=== PATIENT | female | born 1995 | race Caucasian/White ===

== ENCOUNTER 2022-07-21 15:41 | Outpatient (CLI) | payer OTHER, SELFPAY | END 2022-07-21 15:42 | disposition home or self-care (01) | LOC: NFLDREF 15:42 | PROVIDERS: PCP Physical Medicine & Rehabilitation Pain Medicine; Visit Provider Advanced Practice Midwife | DX: Z34.93 Encounter for supervision of normal pregnancy, unspecified, third trimester (principal); Z3A.34 34 weeks gestation of pregnancy | CPT/HCPCS: 86900; 86901 ==

== ENCOUNTER 2022-08-02 16:00 | Outpatient (CLI) | payer OTHER, SELFPAY | END 2022-08-02 16:01 | disposition home or self-care (01) | PROVIDERS: PCP Physical Medicine & Rehabilitation Pain Medicine; Referring Provider Physical Medicine & Rehabilitation Pain Medicine; Visit Provider Advanced Practice Midwife | DX: Z34.83 Encounter for supervision of other normal pregnancy, third trimester (principal); Z3A.36 36 weeks gestation of pregnancy | CPT/HCPCS: 87081; 87653 ==

== ENCOUNTER 2022-08-20 16:12 | Outpatient (CLI) | payer OTHER, SELFPAY ==
[2022-08-20 16:17] VITALS: PULSE 82; O2SAT 99
[2022-08-20 16:37] VITALS: BP 109/68; PULSE 92; RESP 16; TEMP 37.2
--- NOTE | 2022-08-20 19:26 | PC.OBNST ---
NST Note NST Note Start: 08/20/22 16:19 Freq: ONCE Status: Active Protocol: Document 08/20/22 19:25 AAP (Rec: 08/20/22 19:26 AAP [id number]) NST Note 5 Para (# of births) 2 EDC 08/29/22 Gestational Age In Weeks & Days 38 Weeks & 5 Days Patient Presented with Complaint(s) of Decreased movement Reactive Yes Appropriate for Gestational Age Yes ALEXIA Marx, RNC Date 08/20/22 Reactive Yes Appropriate for Gestational Age Yes ALEXIA Tate, RN Date 08/20/22 OB NST charge Yes Complete NST Note via Write Note Yes The provider's electronic signature indicates the NST is reactive/appropriate for gestational age. *Note to provider: If an addendum is required, open the patient's chart and click on the note under the Nurse/Allied Health tab.
== END 2022-08-20 17:25 | disposition home or self-care (01) ==
LOC: OB OUT 16:12 → OB 16:13
PROVIDERS: PCP Physical Medicine & Rehabilitation Pain Medicine; Visit Provider Advanced Practice Midwife
DX: Z34.93 Encounter for supervision of normal pregnancy, unspecified, third trimester (principal); Z3A.39 39 weeks gestation of pregnancy
CPT/HCPCS: 59025; 99213

== ENCOUNTER 2022-08-30 01:33 | Inpatient (IN) | payer OTHER, SELFPAY ==
[2022-08-29 21:00] VITALS: BP 125/73; PULSE 93; RESP 16; TEMP 37
[2022-08-30] VITALS (113 sets, daily range): BP systolic 86–192; BP diastolic 47–86; PULSE 74–112; RESP 16; TEMP 36.3–38.1; O2SAT 95–100
[2022-08-30] MEDS: hydrOXYzine pamoate 25 MG CAPSULE 100 MG PO (00:36)
[2022-08-30] MEDS: MORPHINE 10 MG/ML inj IM (00:36)
[2022-08-30] MEDS: LACTATED RINGERS 1000 ML 1,000 ML 900 ML IV (01:43)
[2022-08-30] MEDS: fentaNYL 250 MCG/5 ML inj 100 MCG EPIDURAL (02:30)
[2022-08-30] MEDS: LIDOCAINE 2% (PF) 5 ML VIAL EPIDURAL (02:35)
[2022-08-30] MEDS: ROPIVACAINE 0.2% 100 ml 100 ML 12 MG EPIDURAL ×3 (02:35→16:39)
--- NOTE | 2022-08-30 02:47 | P.ANBPRC_ITS ---
PFSH PFS Medical History Autonomic dysfunction ?G90.9 - Disorder of the autonomic nervous system, unspecified (ICD-10) Vaginal delivery ?O80 - Encounter for full-term uncomplicated delivery (ICD-10) Family History Mother Heart disease Sister Leukemia Social History Narrative: SOCIAL?? Education: associate degrees times two.?? 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 Lives with: Sonido and two children (2 and 4)? Pets: dog and a cat Abuse: Denies past/present?? Special Diet: Denies?? Ok with a blood transfusion: yes?? Culture or buddhism beliefs: denies?? RISK FACTORS?? Exercise Times/wk: 2 times?? Depression/Anxiety: high school age no meds at that time. Did therapy, no problems since.??Hx of PP anxiety with first baby, no meds or therapy. Today feels her anxiety is manageable, declines referral for therapy and does not want to start any medications. JOE: 8 PHQ 9: 6?? Seat Belt Use: Routinely Smoking: Denies past/present?? Alcohol/day: Denies while ?? Caffeine: no?? Drug Use: Denies past/present?? Chicken Pox: vaccinated, records show non-immune?? MRSA: Denies?? Smoking Status: Never smoker Little interest or pleasure in doing things: several days Feeling down, depressed, or hopeless: not at all Meds Home Medications and Allergies Home Medications Medication Instructions Recorded Confirmed Type prenat.vits,selena,[id number] 1 tab PO QDAY 07/21/22 08/29/22 History iron, carbonyl 18 mg iron chewable 18 mg PO ONCE 08/02/22 08/29/22 History tablet ascorbate calcium (vitamin C) .ROUTE 08/29/22 History Allergies Allergy/AdvReac Type Severity Reaction Status Date / Time No Known Drug Allergies Allergy Verified 08/23/22 14:55 Results Vital Signs Vital Signs: Last Vital Signs Temp 98.6 F 08/29/22 21:00 Pulse 82 08/30/22 02:42 Resp 16 08/29/22 21:00 BP 126/75 08/30/22 02:42 Pulse Ox 100 08/30/22 02:35 Anesthesia Procedures Epidural Insertion Patient Location: OB Start Time: 02:00 Stop Time: 03:00 Start Date: 08/30/22 Stop Date: 08/30/22 Reason for Block: primary anesthetic Patient Position: sitting Performed By: Shaka Treadwell Preanesthetic Checklist: IV checked, risks and benefits discussed, surgical consent, monitors and equipment checked, pre-op evaluation, timeout performed and anesthesia consent Prep: chlorhexidine gluconate Monitoring: blood pressure monitoring, playground monitor, continuous pulse oximetry and heart rate Approach: midline Vertebral Space: lumbar (1-5) Needle Type: Tuohy needle Injection Technique: continuous catheter Needle gauge: 17 Needle Length (cm): 10 cm Needle Insertion Depth (cm): 6 Catheter Gauge: 19 Catheter Type: multi-orifice Catheter at skin depth (cm): 12 Test Dose Result: negative and lidocaine 1.5% with epinephrine 1 to 200,000 Events: other
--- NOTE | 2022-08-30 02:47 | W.PM.LDBA ---
Subjective History of Present Illness Date Seen: 08/30/22 Narrative: Patient is being admitted to Labor and Delivery for spontaneous onset of labor. She is a 26 year old at weeks gestation. She reports labor started yesterday afternoon. She presented to triage around 10 pm where she made minimal cervical change control coordinator 3 hours. She was recommended discharge home and offered morphine and vistaril. She was hesitant about discharge due to living over 45minutes from hospital. She agreed with therapeutic rest with observation at hospital x1 hour after administration. After medication, she was able to rest for a period, but then contractions intensified and significant cervical change was noted at the 1 hour recheck. She is requesting an epidural for pain management on admission. Her full history and physical was dictated by ERIN Deleon on 08/09/2022. Please see this for details. Sonido. Tx at 34 3/7 weeks OB PROBLEM LIST 1. Bleeding in early up to 16 weeks per pt (minimal records sent) requested again 07/21/22 2. Anxiety hx as teen - no medication, did do therapy hx PP anxiety with first, no meds or therapy feels anxiety is manageable at transfer visit. 3. Varicella non-immune 4. Anemia, hgb 10.2 Started iron supplement daily COVID: declines Flu: Fall 2021 TDAP: OB - Problem Based A/P Additional Plan (1) Spontaneous onset of labor: Status: Acute (2) Pain during labor: Status: Acute Plan ASSESSMENT:? 26 at 40 1/7 weeks gestation? complicated by:?Bleeding in early up to 16 weeks, Anxiety, Varicella non-immune, Anemia Labor type: Spontaneous, Active labor? Category 1 FHR pattern.?? Labor complicated by: none? GBS negative? ? PLAN:? 1. Routine intrapartum cares as ordered. Continue with expectant management? 2. Monitoring per policy, continuous with epidural? 3. Candidate for analgesia of choice if desired. Epidural was placed, patient comfortable. 4. Patient encouraged to reposition and ambulate to promote physiologic labor and .? 5. Anticipate ? Delivery/Labor/Induction Plan Plan: expectant management OB Result Labs Labs: OB Labs from [facility]:?Blood type and antibody screen [negative].? not sent in records drawn 07/21: A+? ?Hgb: no record drawn 07/21: 10.2 ?Platelets: drawn 07/21: 222 ?Rubella: Immune?RPR: non-reactive?HBsAg: negative?HIV: negative?GC/Chlamydia: negative/negative Hep C: neg Varicella: non-immune 1hr gtt: 93? 1st trimester US 01/21/2022. SIUP with CALVIN 08/29/2022, consistent with LMP. Anatomy US 04/11/2022?EFW 24%, no anomalies identified, posterior placenta OB Exam Physical Exam Vital signs: Temp Pulse Resp BP Pulse Ox 98.6 F 82 16 126/75 100 08/29/22 21:00 08/30/22 02:42 08/29/22 21:00 08/30/22 02:42 08/30/22 02:35 Narrative: Vitals Reviewed Constitutional:? Alert and oriented x3 HEENT:? Normocephalic, atraumatic Neck:? Supple Lungs:? Clear to auscultation bilaterally Heart:? Regular rate and rhythm, no murmur, rub or gallop Abdomen:? Soft, nontender, and gravid. Vertex by Albin's, confirmed with cervical exam. Extremities:? No edema or erythema Cervix: 6 cm/100%/-2 station/vertex, per RN NST: 125 bpm/moderate variability/15x15 accelerations/no decelerations/contractions every 2-4 minutes
[2022-08-30] MEDS: LACTATED RINGERS 1000 ML 1,000 ML 125 ML IV ×3 (03:02→16:32)
[2022-08-30] MEDS: PHENYLEPHRINE 100 MCG/ML SYRINGE IVP ×2 (03:40→03:52)
[2022-08-30] MEDS: ePHEDrine sulfate 5 MG/ML inj 10 MG IVP (04:12)
--- NOTE | 2022-08-30 08:27 | PM.OBPNL ---
Subjective Time Seen by Provider: 08:15 Date Seen: 08/30/22 Narrative: Margaux is currently resting, comfortable with her epidural. She does say she is feeling some intermittent pressure. Her partner is with her for support. She would like to continue with the epidural for comfort and pain management.?? Objective Exam: VSS, afebrile General Appearance:? Calm, cooperative. No acute distress. ? Psychiatric Exam: Alert and oriented, appropriate affect Abdomen: Gravid Ctx: ?Q 2-4 min apart. ?Mild - Moderate FHTs: Baseline: 135. Variability: moderate. Accels: present. Decels: none. SVE: /-3 Membranes: Intact ? Vital Signs: Last Vital Signs Temp 98.1 F 08/30/22 05:22 Pulse 93 08/30/22 08:19 Resp 16 08/30/22 05:22 BP 111/57 L 08/30/22 08:19 Pulse Ox 100 08/30/22 02:35 Plan Plan: Assessment:?? at 40.1 gestation?? GBS negative Patient is coping well with challenges of labor.?? Labor type: Spontaneous, Active labor? complicated by: -Anxiety -varicella non immune -Anemia Labor complicated by: -Slow progress ? Plan:?? Pt has made no cervical change since 2am. Has hx of slow labors. Baby likely asynclitic by SVE. Reviewed options of expectant management, AROM if safe to do so, and pitocin augmentation. She would prefer to proceed with AROM when able. RNs encouraged to try position changes to allow for better positioning. Will reevaluate after and see if able to AROM. Continue with routine intrapartum cares as ordered.?? Patient encouraged to move and change positions to promote physiologic labor and .?? Continue with epidural for pain management Anticipate progress to NVD.
[2022-08-30] MEDS: OXYTOCIN 30 unit/500 ML in NS 30 UNIT/500 ML BAG IVPB (15:18)
--- NOTE | 2022-08-30 15:21 | PM.OBPNL ---
Subjective Time Seen by Provider: 15:21 Date Seen: 08/30/22 Narrative: Margaux has continued to labor throughout the day. SVEs indicated a likely OP and asynclitic baby. Variables have occurred throughout the day also, improving with position changes. She has been in various position changes throughout the day, including side lying with peanut ball, flying cowgirl, side lying release, hands and knees on the nichole bag and with her chest on the bed. Baby now feels lower and the head is well applied to the cervix unlike prior checks where baby felt as though it was on the pubic bone. Her cervix remains unchanged at this time since 2 am. Reviewed the option of pitocin to make the contractions stronger and she agrees. Is aware the baby may not tolerate this. Consulted Dr. Leos, who reviewed the FHTs and agrees with the plan to start pitocin. Pt and her partner are also agreeable to this plan. Her partner remains at the bedside for support. She has an epidural for pain management. Overall it is working well, though she has felt pressure throughout the day. Objective Exam: VSS, afebrile General Appearance:? Calm, cooperative. No acute distress. ? Psychiatric Exam: Alert and oriented, appropriate affect Abdomen: Gravid Ctx: ?Q 2-4 min apart. ?Mild - Moderate FHTs: Baseline: 150. Variability: min - mod. Accels: present. Decels: none. SVE: 6/90/-1 Membranes: AROM X 4.5 hours, clear fluid ? Vital Signs: Last Vital Signs Temp 98.5 F 08/30/22 13:00 Pulse 93 08/30/22 15:04 Resp 16 08/30/22 05:22 BP 122/56 L 08/30/22 15:04 Pulse Ox 97 08/30/22 12:26 Plan Plan: Assessment:?? at 40.1 gestation?? GBS negative? Labor type: Spontaneous, Active labor? complicated by: -Anxiety -varicella non immune -Anemia Labor complicated by: -Little progress in cervical dilation -variable decels AROM, Clear fluid at 1054 ? Plan:?? Decision made to proceed with pitocin augmentation. Pt agreeable to plan and Dr. Leos aware. Will continue to monitor FHTs closely. Continue with routine intrapartum cares as ordered.?? Patient encouraged to move and change positions to promote physiologic labor and .?? Continue with epidural for pain management Anticipate progress to NVD.?
--- NOTE | 2022-08-30 17:37 | W.PM.OBVAGDE ---
OB Procedure Vag Delivery Mother Details Mother Details: The patient is a 26 year-old, 5, Para 2, admitted on 08/30/22 at 40.1 weeks gestation. : 5 Para: 3 Weeks Gestation: 40.1 Admission Date: 08/30/22 Additional Details Amniotic Membrane Status: AROM Amniotic Membrane Rupture Date: 08/30/22 Amniotic Membrane Rupture Time: 10:54 Amniotic Membrane Fluid Description: Clear Analgesia/Anesthesia Type: Epidural Waterbirth: No Pitcoin: Yes Intrapartal Events: None Delivery augmentation: rupture of membranes and pitocin Labor Onset: 01:56 Complete: 16:58 Pushin:59 Heart: heart tones during second stage were 150s, with variable decels noted during ctx/pushing. Good return to baseline. Delivery Details Delivery Date: 08/30/22 Delivery Time: 17:18 Route of delivery: Infant Gender: Male Infant Viability: Alive; Heart Rate Present Position at Delivery: OA Delivery Details: Margaux labored throughout the day in various position in attempt to help baby into a better position for labor (initially thought to be asynclitic and OP) and to improve variable decels noted throughout labor at times. Baby was able to rotate into a better position, and pitocin was started to increase intensity of ctx and spacing. She was noted to be complete, and a practice push demonstrated baby tolerated pushing and good progress/descent noted w/ pushing. At 1718 a viable?male delivered in vertex OA presentation over intact perineum via spontaneous vaginal?delivery. ?The head then rotated to the OP position. nuchal cord noted, but low and unable to grasp it. Gentle traction applied and pt instructed to push. Delivery of shoulder occurred, and nuchal cord slipped over 's head. Body dystocia noted, likely r/t hips being in a horizontal position, and infant grasped at the axilla and delivered. Infant was placed on maternal abdomen. ?Cord was clamped and cut after a 5+ minute delay.? Nose and mouth were bulb suctioned.? Infant weight pending. ? 9 at 1 minute and 9 at 5 minutes. ?Shoulder dystocia: no. ?Nuchal cord: yes, reduced after delivery of had and shoulders. Placenta delivered spontaneously and complete at 1728 with a 3 vessel cord. Mother and infant were stable after?delivery. Lacerations:? none Blood loss: 50 mL. Blood loss measurement type: QBL? Sponge and needles counts are correct. 1 Minute Interval Total Score: 9 5 Minute Interval Total Score: 9 Additional Details Shoulder Dystocia: No Placenta Delivery Time: 17:28 Placental Delivery Description: Spontaneous Procedure Done: Global Blood Loss: 50 Laceration: None Blood Loss Measurement Type: QBL Sponge/Need Count Correct: Yes Cord Vessel Description: 3 Vessels, Nuchal Cord and Reduced Event Summary Status: Mother and infant were stable after delivery. Disposition: floor
[2022-08-30] MEDS: IBUPROFEN 600 MG TABLET PO (20:17)
[2022-08-30] MEDS: CLINDAMYCIN 900 MG/50 ML-D5W IVPB (20:20)
[2022-08-30] MEDS: LACTATED RINGERS 1000 ML 1,000 ML 50 ML IV (20:21)
[2022-08-31 00:30] VITALS: BP 99/63; PULSE 76; RESP 16; TEMP 36.3; O2SAT 97
[2022-08-31] MEDS: ACETAMINOPHEN 500 MG TABLET 1000 MG PO ×3 (00:50→12:58)
[2022-08-31] MEDS: IBUPROFEN 600 MG TABLET PO ×3 (03:53→16:45)
[2022-08-31] MEDS: CLINDAMYCIN 900 MG/50 ML-D5W IVPB ×2 (03:54→12:02)
[2022-08-31 05:01] VITALS: BP 95/63; PULSE 85; RESP 16; TEMP 36.5; O2SAT 97
[2022-08-31 05:11] LABS: Basophils Percent Auto 0.1 % (0.0-3.0); Eosinophils Percent Auto 0.3 % (0.0-7.0); Hemoglobin* 9.5 gm/dL (12.0-16.0); Immature Granulocytes Pct Auto 0.4 %; Lymphocytes Percent Auto 11.6 % (20-44); Mean Corpuscular HGB Conc 33 gm/dL (32-36); Mean Corpuscular Hemoglobin 29 pg (26-34); Mean Corpuscular Volume 88 fL (80-100); Neutrophils Percent Auto 79.6 % (42.0-72.0); Platelet Count* 238 K/uL (140-440); RDW Coefficient of Variation % 13.1 % (11.5-15.5); Red Blood Count 3.28 m/uL (4.00-5.20); White Blood Count* 16.27 K/uL (4.50-11.00)
[2022-08-31 05:13] LABS: Slide Review Reflex No
[2022-08-31 07:39] VITALS: BP 105/59; PULSE 76; RESP 16; TEMP 36.4; O2SAT 97
--- NOTE | 2022-08-31 08:06 | PM.OBPNVD1 ---
OB - PN:Subj Subjective Date Seen: 08/31/22 Patient comments OB post-: no complaints, pain well controlled, tolerating diet and flatus present [place] status: and doing well [place] feeding status: exclusively OB - PN: Obj Exam Physical Exam: Vital signs: Temp Pulse Resp BP Pulse Ox O2 Del Method 97.5 F L 76 16 105/59 L 97 Room Air 08/31/22 07:39 08/31/22 07:39 08/31/22 07:39 08/31/22 07:39 08/31/22 07:39 08/31/22 07:39 Constitutional: Constitutional: no acute distress Routine Neck Exam: Neck: Present full ROM Detailed Neck Exam: Thyroids: Thyroid: Present normal Routine Respiratory Exam: Respiratory: Present CTA bilaterally Routine Cardiovascular Exam: Cardiovascular: Present RRR Routine Abdominal Exam: Fundus: Present firm Routine Exam: Patient deferred: external exam Routine Extremities Exam: Extremities: Present full ROM Routine Back/Spine/Pelvis Exam: Back/Spine: Present full ROM Routine Neurological Exam: Neurological: Present alert and oriented X3 Routine Psychiatric Exam: Psychiatric: Present normal affect OB - PN: Obj Data Labs Labs: Laboratory Results - last 24 hr 08/31/22 05:05 WBC 16.27 H RBC 3.28 L Hgb 9.5 L Hct 29.0 L MCV 88 MCH 29 MCHC 33 RDW Coeff of Zachary 13.1 Plt Count 238 Neut % (Auto) 79.6 H Lymph % (Auto) 11.6 L [place] % (Auto) 8.0 Eos % (Auto) 0.3 Baso % (Auto) 0.1 Neut # (Auto) 13.00 H Lymph # (Auto) 1.90 [place] # (Auto) 1.30 H Eos # (Auto) 0.00 Baso # (Auto) 0.00 OB - PN: A/P Vaginal Delivery Assessment and Plan (1) Spontaneous onset of labor: Status: Acute (2) Pain during labor: Status: Acute (3) care following vaginal delivery: Status: Acute (4) Lactating mother: Status: Acute Plan day: 1 Plan: routine care Comments: Continue with scheduled antibiotic administration.
[2022-08-31] MEDS: FERROUS SULFATE 325 MG TABLET PO (09:13)
[2022-08-31] MEDS: DOCUSATE SODIUM 100 MG CAPSULE PO (09:13)
[2022-08-31 16:47] VITALS: BP 113/71; PULSE 80; RESP 16; TEMP 36.8; O2SAT 98
[2022-09-01 01:30] VITALS: BP 102/70; PULSE 77; RESP 16; TEMP 36.6; O2SAT 96
[2022-09-01 08:11] VITALS: BP 124/76; PULSE 82; RESP 16; TEMP 36.7; O2SAT 98
[2022-09-01] MEDS: FERROUS SULFATE 325 MG TABLET PO (08:19)
[2022-09-01] MEDS: DOCUSATE SODIUM 100 MG CAPSULE PO (08:19)
--- NOTE | 2022-09-01 08:30 | PM.OBDSVD1 ---
DS: Providers Provider Date Seen: 09/01/22 Date of admission: 08/30/22 01:33 Primary care physician: Suad Patten MD Admitting Clinician: Danna Keating CNM Attending Physician on discharge: Danna Keating CNM DS: Diagnosis Discharge Diagnosis (1) care following vaginal delivery: Status: Acute (2) Lactating mother: Status: Acute (3) Chorioamnionitis, delivered, current hospitalization: Status: Acute Problem details: Afebrile >24hours (4) Normal vaginal delivery: Status: Acute Exam Narrative: Exam Narrative: GENERAL APPEARANCE:? normal affect, alert, no distress MOOD:? appropriate CHEST:? clear to auscultation HEART:? regular rate and rhythm ABDOMEN:? soft, non-tender the uterine fundus is 1 cm below Umbilicus, Midline and is appropriate for the stage of recovery. PERINEUM:? mild edema of the perineum, intact EXTREMITIES:? normal and no edema Const: Vital Signs, click to edit/add: Vital Signs - 24 hr 08/31/22 16:47 09/01/22 01:30 09/01/22 08:11 Temperature 98.3 F 97.8 F 98.0 F Pulse Rate [Pulse Oximeter] 80 77 82 Respiratory Rate 16 16 16 Blood Pressure [Le ft Arm] 113/71 102/70 124/76 Pulse Oximetry 98 96 98 Oxygen Delivery Me thod Room Air Room Air Room Air Documenting provider has reviewed patient's vital signs: yes OB - DS: Summary Hospital Course Hospital Course: Margaux is a 26 year old G 5 P 3023 at 40 1/7 weeks gestation that was admitted to the Center on 08/30/22 for spontaneous onset of labor. She had an uncomplicated vaginal delivery. She delivered a viable male infant. Her was complicated by elevated temperature a few hours after . She was treated with antibiotics and has been afebrile >24 hours. The patient feels well. ?The pain is well controlled with current medications. ?She has no new complaints. ?She is [breast feeding] and reports things are [] going well.? the patient has done well.? Vitals have been stable.? She has remained afebrile.? Has a good appetite, is tolerating a general diet. ?She is voiding without difficulty.? She is passing gas and has [not] had a bowel movement.? She is ambulating and denies any dizziness.? Has [Small] amount of rubra lochia. ?She is planning [] for prevention. Peripartum Data Infant delivery method: Vaginal Laceration description: None complications: none [place] Gender: Male Infant Discharge Plan: Home Status at Discharge Functional status at discharge: independent ambulation Overall status at discharge: patient is progressing back to baseline Time Spent with Patient Time attestation: Total time spent providing and/or coordinating discharge services: Discharge Plan Discharge Disposition: Home, Self-Care Date of Admission: 08/30/22 01:33 Primary Care Provider: Suad Patten Condition: Stable Anticipated Discharge Date/Time: 09/01/22 12:00 Discharge Medications: New docusate sodium 100 mg Capsule 100 mg PO DAILY Qty: 90 0RF ibuprofen 600 mg Tablet 600 mg PO Q6H PRNQty: 60 0RF acetaminophen 500 mg Tablet 1,000 mg PO Q6H PRNQty: 0 0RF Continued prenat.vits,selena,[id number] Tablet 1 tab PO QDAY iron, carbonyl 18 mg iron tablet,chewable 18 mg PO ONCE ascorbate calcium (vitamin C) .ROUTE Discharge Orders: Discharge Order (Routine); Ordered 09/01/22 Ordered By: Danna Keating Patient Education: OB Over the Counter Medication Information, OB Vaginal/Breast Feeding Activity Level: No Restrictions Discharge Diet: Regular Follow Up Appointments: Suad Patten MD [Primary Care Provider] - [facility] [Provider Group] Forms: [employer] Info Instructions
== END 2022-09-01 15:10 | disposition home or self-care (01) | DRG 805 ==
LOC: OB OUT 01:34 → OB 01:34
PROVIDERS: Advanced Practice Midwife; Admitting Provider Advanced Practice Midwife; PCP Physical Medicine & Rehabilitation Pain Medicine; Visit Provider Advanced Practice Midwife
DX: O64.0XX0 Obstructed labor due to incomplete rotation of fetal head, not applicable or unspecified (principal); O41.1230 Chorioamnionitis, third trimester, not applicable or unspecified; Z37.0 Single live birth; O76 Abnormality in fetal heart rate and rhythm complicating labor and delivery; O99.344 Other mental disorders complicating childbirth; F41.9 Anxiety disorder, unspecified; O99.02 Anemia complicating childbirth; D64.9 Anemia, unspecified; Z28.39 Other underimmunization status; Z3A.40 40 weeks gestation of pregnancy
CPT/HCPCS: 01967; 36415; 85025; 87040; 99213; A9270; J1580; J2270; J2370; J2795; J3010; J7120; S0077

== ENCOUNTER 2023-08-18 12:57 | Outpatient (CLI) | payer OTHER, SELFPAY | END 2023-08-18 12:58 | disposition home or self-care (01) | LOC: NFLDREF 09-07 14:06 | PROVIDERS: PCP Physical Medicine & Rehabilitation Pain Medicine; Referring Provider Physical Medicine & Rehabilitation Pain Medicine; Visit Provider Advanced Practice Midwife | DX: Z34.91 Encounter for supervision of normal pregnancy, unspecified, first trimester (principal); O21.1 Hyperemesis gravidarum with metabolic disturbance; Z3A.01 Less than 8 weeks gestation of pregnancy | CPT/HCPCS: 76817; 86592; 86703; 86704; 86706; 86762; 86787; 86803; 86850; 86900; 86901; 87086; 87186; 87340 ==

== ENCOUNTER 2023-09-21 09:06 | Outpatient (CLI) | payer OTHER, SELFPAY | END 2023-09-21 09:07 | disposition home or self-care (01) | LOC: NFLDREF 09:07 | PROVIDERS: PCP Physical Medicine & Rehabilitation Pain Medicine; Visit Provider Advanced Practice Midwife | DX: Z34.91 Encounter for supervision of normal pregnancy, unspecified, first trimester (principal); Z3A.12 12 weeks gestation of pregnancy | CPT/HCPCS: 87086; 87186 ==

== ENCOUNTER 2023-10-19 09:13 | Outpatient (CLI) | payer OTHER, SELFPAY | END 2023-10-19 09:14 | disposition home or self-care (01) | LOC: NFLDREF 09:14 | PROVIDERS: PCP Physical Medicine & Rehabilitation Pain Medicine; Visit Provider Advanced Practice Midwife | DX: Z34.92 Encounter for supervision of normal pregnancy, unspecified, second trimester (principal); Z3A.16 16 weeks gestation of pregnancy | CPT/HCPCS: 87086 ==

== ENCOUNTER 2023-11-16 09:14 | Outpatient (CLI) | payer OTHER, SELFPAY ==
--- NOTE | 2023-11-16 09:15 | CRLHL7_ITS ---
For Patients: As a result of the Century Cures Act, medical imaging exams and procedure reports are released immediately into your electronic medical record. You may view this report before your referring provider. If you have questions, please contact your health care provider. INDICATION: Evaluate anatomy. COMPARISON: 08/18/2023 TECHNIQUE: Real time sheehan scale imaging of the fetus was performed as well as color Doppler analysis of the umbilical vessels. FINDINGS: Sonographic imaging demonstrates a single living intrauterine gestation. Fetus demonstrates a regular cardiac rate of 138 beats per minute. Fetus has a breech position. The placenta lies anteriorly without evidence of placenta previa. Placental edge 7.9 cm from the internal cervical os. Amniotic fluid volume appears normal. Single deepest vertical pocket: 4.3 cm. The cervix is closed and measures 4.2 cm in length. The composite ultrasound gestational age is calculated at 20 weeks 5 days with an estimated sonographic due date of 03/30/2024. The estimated weight is 394 grams which lies at the 84th %. The following biometric measurements were obtained: Biparietal diameter: 4.8 cm/20 weeks 3 days 53rd% Head circumference: 18.0 cm/20 weeks 3 day 48th% Abdominal circumference: 15.8 cm/20 weeks 6 days 65th% Femur length: 3.6 cm/21 weeks 3 days 80th% The HC/AC ratio measures: 1.14 range (1.06-1.25) On anatomic survey, there is a normal appearance of the cerebral ventricles, cavum septi pellucidi, cisterna magna and cerebellum. The nose, lips, and facial profile appear normal. The cervical, thoracic and lumbar spine are well visualized and appear normal. There is a normal four-chamber heart view and the left and right ventricular outflow tracts appear normal. The diaphragm and stomach appear normal. The kidneys and bladder also appear normal. There is a normal three-vessel cord and cord insertion site. The four extremities appear normal. IMPRESSION: Normal OB ultrasound exam with concordance of clinical and sonographic dating. No intrinsic abnormalities noted on anatomic survey. Dictated by Thomas Cast MD @ 11/17/2023 11:58:03 AM (Electronically Signed)
== END 2023-11-16 09:15 | disposition home or self-care (01) ==
LOC: US 09:15
PROVIDERS: PCP Physical Medicine & Rehabilitation Pain Medicine; Visit Provider Advanced Practice Midwife
DX: Z34.92 Encounter for supervision of normal pregnancy, unspecified, second trimester (principal); Z3A.20 20 weeks gestation of pregnancy
CPT/HCPCS: 76805

== ENCOUNTER 2024-01-09 13:00 | Outpatient (CLI) | payer OTHER, SELFPAY | END 2024-01-09 13:01 | disposition home or self-care (01) | LOC: NFLDREF 01-12 08:28 | PROVIDERS: PCP Physical Medicine & Rehabilitation Pain Medicine; Referring Provider Physical Medicine & Rehabilitation Pain Medicine; Visit Provider Midwife | DX: Z34.93 Encounter for supervision of normal pregnancy, unspecified, third trimester (principal); Z3A.28 28 weeks gestation of pregnancy | CPT/HCPCS: 86592 ==

== ENCOUNTER 2024-02-28 12:19 | Outpatient (CLI) | payer OTHER, SELFPAY ==
[2024-02-28 12:27] VITALS: PULSE 92; O2SAT 98
[2024-02-28 12:41] VITALS: BP 111/60; PULSE 89
--- NOTE | 2024-02-28 13:54 | PC.OBNST ---
NST Note NST Note Start: 02/28/24 12:31 Freq: ONCE Status: Active Protocol: Document 02/28/24 13:52 ANDRY (Rec: 02/28/24 13:54 ANDRY [id number]) NST Note 6 Para (# of births) 3 EDC 04/02/24 Gestational Age In Weeks & Days 35 Weeks & 1 Days Patient Presented with Complaint(s) of Decreased movement Reactive Yes Appropriate for Gestational Age Yes ALEXIA Waters Date 02/28/24 Reactive Yes Appropriate for Gestational Age Yes ALEXIA Elkins Date 02/28/24 OB NST charge Yes Complete NST Note via Write Note Yes The provider's electronic signature indicates the NST is reactive/appropriate for gestational age. *Note to provider: If an addendum is required, open the patient's chart and click on the note under the Nurse/Allied Health tab.
== END 2024-02-28 13:13 | disposition home or self-care (01) ==
LOC: OB OUT 12:20 → OB 12:21
PROVIDERS: PCP Physical Medicine & Rehabilitation Pain Medicine; Visit Provider Advanced Practice Midwife
DX: O36.8130 Decreased fetal movements, third trimester, not applicable or unspecified (principal); Z3A.35 35 weeks gestation of pregnancy
CPT/HCPCS: 59025; G0463

== ENCOUNTER 2024-03-04 09:30 | Outpatient (CLI) | payer OTHER, SELFPAY | END 2024-03-04 09:31 | disposition home or self-care (01) | LOC: NFLDREF 03-06 10:10 | PROVIDERS: PCP Physical Medicine & Rehabilitation Pain Medicine; Referring Provider Physical Medicine & Rehabilitation Pain Medicine; Visit Provider Midwife | DX: Z34.93 Encounter for supervision of normal pregnancy, unspecified, third trimester (principal); O99.013 Anemia complicating pregnancy, third trimester; Z3A.35 35 weeks gestation of pregnancy | CPT/HCPCS: 82728; 87081; 87653 ==

== ENCOUNTER 2024-03-08 08:20 | Outpatient (CLI) | payer OTHER, SELFPAY ==
[2024-03-08 08:34] VITALS: PULSE 87; O2SAT 100
[2024-03-08 08:39] VITALS: PULSE 86; O2SAT 99
[2024-03-08 08:42] VITALS: BP 103/59; PULSE 75; RESP 18; TEMP 36.6
[2024-03-08 09:00] LABS: Appearance Urine Clear (Clear); Bilirubin Urine Negative (Negative); Blood Urine Negative (Negative); Color Urine Yellow (Yellow); Glucose Urine Negative (Negative); Ketones Urine Negative (Negative); Leukocyte Esterase Urine Negative (Negative); Nitrite Urine Negative (Negative); Protein Urine Negative (Negative)
--- NOTE | 2024-03-08 10:35 | PC.OBNST ---
NST Note NST Note Start: 03/08/24 08:22 Freq: ONCE Status: Active Protocol: Document 03/08/24 10:31 ANDRY (Rec: 03/08/24 10:34 ANDRY Desktop) NST Note 6 Para (# of births) 3 EDC 04/02/24 Gestational Age In Weeks & Days 36 Weeks & 3 Days Patient Presented with Complaint(s) of Contractions/cramping Other Complaints Pt. presented to center for c/o cramping, low back pain, and some mild nausea Reactive Yes Appropriate for Gestational Age Yes ALEXIA Waters Date 03/08/24 Reactive Yes Appropriate for Gestational Age Yes ALEXIA Elkins Date 03/08/24 OB NST charge Yes Complete NST Note via Write Note Yes The provider's electronic signature indicates the NST is reactive/appropriate for gestational age. *Note to provider: If an addendum is required, open the patient's chart and click on the note under the Nurse/Allied Health tab.
== END 2024-03-08 10:00 | disposition home or self-care (01) ==
LOC: OB OUT 08:21 → OB 08:24
PROVIDERS: PCP Physical Medicine & Rehabilitation Pain Medicine; Visit Provider Advanced Practice Midwife
DX: O47.03 False labor before 37 completed weeks of gestation, third trimester (principal); Z3A.36 36 weeks gestation of pregnancy
CPT/HCPCS: 59025; 81003; G0463

== ENCOUNTER 2024-03-09 22:54 | Outpatient (CLI) | payer OTHER, SELFPAY ==
[2024-03-09 23:19] VITALS: PULSE 73; O2SAT 96
[2024-03-09 23:20] VITALS: BP 101/59; PULSE 73; RESP 16; TEMP 36.6
[2024-03-09 23:56] LABS: Basophils Absolute Auto 0.03 K/uL (0.00-0.30); Basophils Percent Auto 0.3 % (0.0-3.0); Eosinophils Absolute Auto 0.03 K/uL (0.00-0.50); Eosinophils Percent Auto 0.3 % (0.0-7.0); Hematocrit 30.2 % (33.0-51.0); Immature Granulocytes Abs Auto 0.07 K/uL (0.00-0.30); Immature Granulocytes Pct Auto 0.8 %; Lymphocytes Percent Auto 15.6 % (20-44); Mean Corpuscular HGB Conc 33 gm/dL (32-36); Mean Corpuscular Hemoglobin 29 pg (26-34); Mean Corpuscular Volume 88 fL (80-100); Monocytes Percent Auto 8.1 % (0.0-11.0); Neutrophils Percent Auto 74.9 % (42.0-72.0); Platelet Count* 208 K/uL (140-440); RDW Coefficient of Variation % 13.1 % (11.5-15.5); Red Blood Count 3.43 m/uL (4.00-5.20); White Blood Count* 8.65 K/uL (4.50-11.00)
[2024-03-09 23:57] LABS: Slide Review Reflex No
[2024-03-10 00:10] LABS: Albumin* 3.5 g/dL (3.3-5.0); Chloride* 105 mmol/L (96-114); Sodium* 133 mmol/L (135-149)
[2024-03-10 00:11] LABS: Potassium* 3.2 mmol/L (3.6-5.1)
[2024-03-10 00:13] LABS: Alkaline Phosphatase* 148 U/L (40-150); Anion Gap 9 mEq/L (7-15); Aspartate Amino Transferase* 18 U/L (12-35); Bilirubin Total* 0.5 mg/dL (0.1-1.5); Blood Urea Nitrogen* 5 mg/dL (5-24); Carbon Dioxide* 19 mmol/L (20-32); Creatinine* 0.4 mg/dL (0.5-1.5); Estimated Glomerular Filt Rate 139 ml/min; Total Protein* 6.2 g/dL (6.0-8.3)
[2024-03-10 00:14] LABS: Alanine Aminotransferase* 12 U/L (4-35); Calcium* 8.4 mg/dL (8.4-10.6); Glucose* 88 mg/dL (60-115)
[2024-03-10 01:11] VITALS: TEMP 37.2
[2024-03-10] MEDS: hydrOXYzine pamoate 25 MG CAPSULE 50 MG PO (01:11)
[2024-03-10] MEDS: ACETAMINOPHEN 500 MG TABLET 1000 MG PO (01:11)
--- NOTE | 2024-03-10 01:45 | PC.OBNST ---
NST Note NST Note Start: 03/09/24 23:08 Freq: ONCE Status: Active Protocol: Document 03/10/24 01:40 RADHA (Rec: 03/10/24 01:42 KARUNAELADIA [id number]) NST Note 6 Para (# of births) 3 EDC 04/02/24 Gestational Age In Weeks & Days 36 Weeks & 5 Days Patient Presented with Complaint(s) of Other Other Complaints Ongoing abdominal pain since Reactive Yes RN Ilene Nguyen RN Date 03/10/24 Reactive Yes ALEXIA Devine RN Date 03/10/24 OB NST charge Yes Complete NST Note via Write Note Yes The provider's electronic signature indicates the NST is reactive/appropriate for gestational age. *Note to provider: If an addendum is required, open the patient's chart and click on the note under the Nurse/Allied Health tab.
== END 2024-03-10 01:20 | disposition home or self-care (01) ==
LOC: OB OUT 22:55 → OB 22:55
PROVIDERS: PCP Physical Medicine & Rehabilitation Pain Medicine; Visit Provider Midwife
DX: O26.893 Other specified pregnancy related conditions, third trimester (principal); R10.9 Unspecified abdominal pain; Z3A.36 36 weeks gestation of pregnancy
CPT/HCPCS: 36415; 59025; 80053; 85025; G0463; A9270

== ENCOUNTER 2024-03-10 01:23 | Emergency (ER) | payer OTHER, SELFPAY ==
[2024-03-10 01:30] VITALS: BP 117/77; PULSE 94; RESP 16; TEMP 36.8; O2SAT 95; BMI 29.6
[2024-03-10 02:02] LABS: Lipase* 45 U/L (23-300)
[2024-03-10] MEDS: GI COCKTAIL (VISC LIDO/ANTACID) 30 ML PO (02:05)
--- OUTSIDE RECORDS SUMMARY | 2024-03-10 02:20 | XMS_ITS | Clinical Summary ---
Author Organization [facility] Address [address] [place] [address] Care Team Providers Care Manufacturing Supervisor Name Role Phone Elsewhere, Pcp Primary Care Provider Unavailabl e Source Comments Patient records contain information from all sites at [facility]. For routine questions regarding patient records, call [phone] during business hours, M-F 8:00 AM - 5:00 PM Central Time. Record requests for emergency care only can be directed to [phone] at any time.[facility] Allergies No known active allergies Medications * This document contains information received from the source organization and may not represent a complete record from that organization. jxwcakt-Ir-xqpg -FA (VINATE ONE) 60 mg iron-1 mg per tablet Take 1 tablet by mouth daily. Active cephalexin (KEFLEX) 500 mg capsule Take 1 capsule by mouth 4 (four) times a day with meals and bedtime. 08/20/2023 Active metoclopramide (REGLAN) 10 mg tablet Take 1 tablet by mouth 4 (four) times a day with meals and bedtime. 08/18/2023 Active Active Problems Problem Noted Date Diagnosed Date 30 Weeks Gestation 06/24/2022 Encounter For Supervision Of Normal Unspecified Trimester 06/09/2022 Pap Smear Examination 05/13/2022 Overview (05/13/2022): Due , patient declined in Examination Normal First Trim sadie 01/21/2022 Overview (01/21/2022): Varicella and Rubella Immune Pap smear due, deferred until next visit with GC/CT. Anxiety 10/23/2019 Seizure 07/01/2013 Overview (09/13/2016): Convulsions/spells/seizures* Comments Yes Resolved Problems Problem Noted Date Diagnosed Date Resolved Date 39 Weeks Gestation 04/27/2020 01/21/2022 COVID-19 Infection 12/30/2019 0 Examination Normal Second Trimester 09/18/2019 06/16/2020 Care 06/13/2018 09/18/2019 Delivery Vaginal Normal Spontaneous 06/13/2018 09/18/2019 Delivery Vaginal Normal Spontaneous 06/11/2018 06/13/2018 Examination Normal Third Trimester 06/09/2018 06/13/2018 Anomaly Suspected Not Found 02/16/2018 09/18/2019 Encounter For Supervision Of Normal First Unspecified Trimester 12/18/2017 06/13/19 19 Immunizations Name Administration Dates Next Due 4vHPV (discontinued) 05/29/2009,01/26/2009,11/10 DTaP (Infanrix, [employer]) 11/10/2008,11/2001,03/30/1998,1996,01/28/1997,1996 HepB, Unspecified 06/27/1997,1996,09/27/18 97 Hib (PRP-OMP) (PedvaxHIB) 10/10/1997,12/1996,01/28/1997,1996 IPV 10/29/2001 MMR 06/12/2018,10/29/2001,10/10/1997 OPV 04/01/1997,01/28/1997,1996 Rabies, intramuscular, historical 2013,11/04/2013,10/31/2013,2013 Tdap 06/09/2022, 0,04/09/2018,2013 JAIRON 03/10/2009,10/10/1997 influenza trivalent LAIV (Na moni) (2 years through 49 years) 03/01/2010 influenza vaccine quad (FLUZONE/FLUARIX) (6 months and older)(PF) 03/22/2022,02/16/2021,02/12/2020,2018,02/12/2018 Family History Medical History Relation Name Comments Alcohol abuse Father Greyson Lauren Hyperlipidemia Father Greyson Lauren Hypertension Father Greyson Lauren Clotting disorder Mother Natalia Lauren Coronary artery disease Mother Natalia Lauren Heart attack Mother Natalia Lauren Heart disease Mother Natalia Lauren Hyperlipidemia Mother Natalia Lauren Hypertension Mother Natalia Lauren Miscarriages / Stillbirths Mother Natalia Lauren Cancer Sister Leukemia Sister Miscarriages / Stillbirths Sister Melanoma Neg Hx Relation Name Status Comments Brother Alive Father Greyson Lauren Alive Maternal Grandfather Alive Maternal Grandmother Alive Mother Natalia Lauren Alive Paternal Grandfather Paternal Grandmother Alive Sister Alive Social History Tobacco Use Types Packs/Day Years Used Date Smoking Tobacco: Never Smokeless Tobacco: Never Tobacco Cessation:Counseling Given: Not Answered Alcohol Use Standard Drinks/Week Comments Yes 5 (1 standard drink = 0.6 oz pur e alcohol) socially Humiliation, Afraid, Rape, and Kick questionnair e Answer Date Recorded Within the last year, have y ou been afraid of your partner or ex-partner? No 07/14/2022 Within the last year, have y ou been humiliated or emotionally abused in other ways by your partner or ex-partner? No Within the last year, have y ou been kicked, hit, slapped, or otherwise physically hurt by your partner or ex-partner? No 07/14/2022 Within the last year, have y ou been raped or forced to have any kind of sexual activity by your partner or ex-partner? No 07/14/2022 Social Connection and Isolat ion Panel [NHANES] Answer Date Recorded In a typical week, how many times do you talk on the phone with family, friends, or neighbors? More than three times a week 07/14/2022 Frequency of Social Gatherin gs with Friends and Family Not on file 07/14/2022 How often do you attend [facility] or [facility] services? More than 4 times per year 07/14/2022 Do you belong to any clubs o r organizations such as jain groups, unions, fraternal or athletic groups, or school groups? Yes 07/14/2022 How often do you attend meet ings of the clubs or organizations you belong to? 1 to 4 times per year 07/14/2022 Are you , , di vorced, , never , or living with a partner? 07/14/2022 AUDIT-C Answer Date Recorded Q1: How often do you have a drink containing alc ohol? Never 07/14/2022 Average Number of Drinks Not on file 023 Frequency of Binge Drinking Not on file 06/23 Overall Financial Resource Strain (CARDIA) Answe r Date Recorded How hard is it for you to pa y for the very basics like food, housing, medical care, and heating? Somewhat hard 07/14/2022 PHQ-2 Answer Date Recorded PHQ-2 Score 3 11/24/2020 [facility] of Occupat ional [facility] - Occupational Stress Questionnaire Answer Date Recorded Do you feel stress - tense, restless, nervous, or anxious, or unable to sleep at night because your mind is troubled all the time - these days? Only a little 07/14/2022 Exercise Vital Sign Answer Date Recorde d On average, how many days pe r week do you engage in moderate to strenuous exercise (like a brisk walk)? 2 days 07/14/2022 On average, how many minutes do you engage in exercise at this level? 20 min 07/14/2022 Hunger Vital Sign Answer Date Recorded Within the past 12 months, y ou worried that your food would run out before you got the money to buy more. Sometimes true Within the past 12 months, t he food you bought just didn't last and you didn't have money to get more. Never true PRAPARE - Transportation Answer Date Re corded In the past 12 months, has l ack of transportation kept you from medical appointments or from getting medications? No 06/23 In the past 12 months, has l ack of transportation kept you from meetings, work, or from getting things needed for daily living? No 07/14/2022 Housing Stability Vital Sign Answer Guy e Recorded In the last 12 months, was t here a time when you were not able to pay the mortgage or rent on time? No 07/14/2022 In the last 12 months, how many places have you lived? 1 07/14/2022 In the last 12 months, was t here a time when you did not have a steady place to sleep or slept in a fci (including now)? No 07/14/2022 Depression Answer Date Recor ded PHQ-9 Total Score (max 27) 10 11/24 Nutrition Answer Date Recorded On average, how many serving s of fruits and vegetables do you eat per day (serving size is equal to 1 cup or approximately the size of a tennis ball)? 2-3 07/14/2022 Dental Answer Date Recorded Dental: Regular Dentist No 07/15/19 Education Answer Date Recorded What is the highest level of school you have completed or the highest degree you have received? Associate degree: academic program 09/18/2019 Comments Yes Sex and Gender Information Value Date Recorded Sex Assigned at Female 06/10/2018 1:03 AM STRAP STITCHER Legal Sex Female 6:12 PM STRAP STITCHER Gender Identity Female 06/10/2018 1:03 AM STRAP STITCHER Sexual Orientation Straight 06/10/2018 1: 03 AM STRAP STITCHER Occupation Industry Job Start Date Job End Date Not on file Not on file Not on file Not on file Last Filed Vital Signs Vital Sign Reading Time Taken Comments Blood Pressure 106/74 08/28/2023 3:51 PM CDT Pulse 96 08/28/2023 3:51 PM CDT Temperature 36.4 ??C (97.5 ??F) 08/28/2023 3:51 PM CD T Respiratory Rate 16 09/20/2022 6:47 PM CDT Oxygen Saturation 96% 03/24/2022 7:14 PM STRAP STITCHER Inhaled Oxygen Concentration - - Weight 71.7 kg (158 lb 1.1 oz) 08/28/2023 3:51 P M CDT Height 175 cm (5' 8.9) 05/13/2022 9:42 AM STRAP STITCHER Body Mass Index 23.41 05/13/2022 9:42 AM STRAP STITCHER Plan of Treatment Health Maintenance Due Date Last Done Comments Cervical/Vaginal Cancer Screening 07/25/2021 07/25/2018 Depression Screening (Annual PHQ-2) 04/24/2023 COVID-19 Vaccine ( season) 2023 Influenza Vaccine (#1) 2024 , 02/16/2021, 02/12/2020, Additional history exists DTaP,Tdap,and Td Vaccines (11 - Td or Tdap) 06/09/2032 06/09/2022, 02/12/2020, 04/09/2018, Additional history exists RSV vaccine - (32-36 weeks) or 60+ years (1 - 1-dose 75+ series) 09/27/2071 Hepatitis B Vaccines Completed 06/27/1997, 1996, 1996 IPV Vaccines Completed 10/29/2001, 12/1996, 01/28/1997, Additional history exists HPV Vaccines Completed 05/29/2009, 08/2008, 11/10/2008 Chlamydia and Gonorrhea Screening Discontinued 02/18/2022, 09/18/2019 HIV Screening Completed 05/13/2022, 08/23, 11/22/2017 Hepatitis C Screening Completed 05/13/2022 Pneumococcal vaccine (0-64 years) Aged Out No longer eligible based on patient's age to complete this topic Procedures Procedure Name Priority Date/Time Associated Diagnosis Comments HCV AB SCRN , S Routine 05/13/2022 9:37 AM STRAP STITCHER Examination Normal First Trimester (HCC) HIV-1/-2 AG AND AB SCREEN, PLASMA Routine 05/13/2022 9:37 AM STRAP STITCHER Examination Normal First Trimester (HCC) CHLAMYDIA/GONORRHOE AE AMPLIFIED RNA Routine 02/18/2022 12:06 PM CDT 12 Weeks Gestation (HCC) THINPREP SCREEN HPV REFLEX Routine 07/25/2018 12:09 PM CDT Exam (HCC) from Last 3 Months or Most Recently Relevant to Health Maintenance Results * Hepatitis C Virus Antibody Screen (05/13/2022 9:37 AM STRAP STITCHER) HCV Ab Scrn , S Negative Negative 05/14/2022 1:59 PM STRAP STITCHER [facility] Comment:Grxjdr-lk-rqsrtq rat io is <1.00. Blood (Blood, Venous) 05/13/2022 9:37 AM STRAP STITCHER 05/14/2022 9:01 AM STRAP STITCHER Diana Epps CNM, A.P.N.P. LAB MICROBIOLO GY - BLOOD ORDERABLES Final Result [facility] [address] [place] [address] [facility] [address] [place] [address] * HIV-1/-2 Ag and Ab Screen, Plasma (05/13/2022 9:37 AM STRAP STITCHER) [facility] HIV Ag/Ab Screen, P Negative Negative 05/13/2022 6:19 PM STRAP STITCHER [facility] Comment: Negative result does not rule out HIV infection. If exposure to HIV infection occurred <14 days ago, contact the laboratory to request addition of HIV-1 RNA detection / quantification test. HIV-1 p24 Ag Screen, P Negative Negative 05/13/2022 6:19 PM STRAP STITCHER [facility] Comment: Negative result does not rule out HIV infection. If exposure to HIV infection occurred <14 days ago, contact the laboratory to request addition of HIV-1 RNA detection / quantification test. HIV-1 Ab Screen, P Negative Negative 2022 6:19 PM STRAP STITCHER [facility] Comment: Negative result does not rule out HIV infection. If exposure to HIV infection occurred <14 days ago, contact the laboratory to request addition of HIV-1 RNA detection / quantification test. HIV-2 Ab Screen, P Negative Negative 2022 6:19 PM STRAP STITCHER [facility] Comment: Negative result does not rule out HIV infection. If exposure to HIV infection occurred <14 days ago, contact the laboratory to request addition of HIV-1 RNA detection / quantification test. Blood (Blood, Venous) 05/13/2022 9:37 AM STRAP STITCHER 05/13/2022 2:58 PM STRAP STITCHER Diana Epps CNM, A.P.N.P. LAB MICROBIOLO GY - BLOOD ORDERABLES Final Result Performing Organization Address City/[facility]/ZIP Co de Phone Number [facility] [address] [place] [address], [facility] [place] [address] [place] [address] * Chlamydia / Gonorrhoeae Amplified RNA (02/18/2022 12:06 PM CDT) Source Urine, Urine, First Voided 02/21/2022 3:05 PM CDT [facility] Chlamydia trachomatis amplified RNA Negative Negative 02/21/2022 3:05 PM CDT [facility] Source Urine, Urine, First Voided 02/21/2022 3:05 PM CDT [facility] Neisseria gonorrhoeae amplified RNA Negative Negative 02/21/2022 3:05 PM CDT [facility] Urine (Urine, First Voided) 02/18/2022 12:06 PM CDT 02/19/2022 12:13 AM CDT Carol Patten M.D. LAB MICROBIOLOGY - GENERAL ORDERABLES Final Result Performing Organization Address City/[facility]/ZIP Co de Phone Number [facility] [address] [place] [address], [facility] [place] [address] [place] [address] * ThinPrep Screen HPV Reflex (07/25/2018 12:09 PM CDT) 07/27/2018 1:44 PM CDT [facility] Report electronically signed by KELLY Escalante(ASCP) I verify that I have examined all relevant slides/materials for the specimen(s) and rendered or confirmed the diagnosis. 07/27/2018 1:44 PM CDT [facility] Gross Description Received specimen in a ThinPrep vial. 07/27/2018 1:44 PM CDT [facility] Pap Test Source Cervical/Endocervi selena 07/27/2018 1:44 PM CDT [facility] Interpretation Cervical/Endocervi selena ??(ThinPrep): Satisfactory for Evaluation Endocervical/trans formation zone components absent Negative for Intraepithelial Lesion or Malignancy Shift in segundo suggestive of bacterial vaginosis 07/27/2018 1:44 PM CDT [facility] Varies (Cervix/Endocerv ix) 07/25/2018 12:09 PM CDT 07/26/2018 9:17 AM CDT us Natalia Santos CN LAB PAP PATHDX ORDERABLES Final Result [facility] [address] [place] [address], [facility] from Last 3 Months or Most Recently Relevant to Health Maintenance Insurance [facility] Advance Directives For more information, please contact: [phone] * Full Code (Latest Code Status on File) Date Activated Date Inactivated Comments 04/28/2020 9:31 PM 05/01/2020 5:28 PM Question Answer Comments Full Code: Discussed * Full Code Date Activated Date Inactivated Comments 06/11/2018 2:52 AM 06/13/2018 4:33 PM Question Answer Comments Full Code: Discussed * Full Code Date Activated Date Inactivated Comments 06/09/2018 11:51 PM 06/11/2018 2:52 AM Question Answer Comments Full Code: Discussed Care Teams Manufacturing Supervisor Relationship Specialty Start Date End Date Elsewhere, Pcp PCP - General Family Medicine 03/12/19
--- OUTSIDE RECORDS SUMMARY | 2024-03-10 02:20 | XMS_ITS ---
Author Organization [facility] Address [address] [place] [address] Care Team Providers Care Field Staff Name Role Phone Unavailable Unavailable Unavailable Surgery Details Not on file Complications Check Surgery Details section. Procedure Estimated Blood Loss Check Surgery Details section. Procedure Findings Check Surgery Details section. Procedure Specimens Taken Check Surgery Details section.
--- OUTSIDE RECORDS SUMMARY | 2024-03-10 02:20 | XMS_ITS | Referral Summary ---
Author Organization [facility] Address [address] [place] [address] Care Team Providers Care Immersion Metal Cleaner Name Role Phone Elsewhere, Pcp Primary Care Provider Unavailabl e Source Comments Patient records contain information from all sites at [facility]. For routine questions regarding patient records, call [phone] during business hours, M-F 8:00 AM - 5:00 PM Central Time. Record requests for emergency care only can be directed to [phone] at any time.[facility] Allergies No known active allergies Medications * This document contains information received from the source organization and may not represent a complete record from that organization. eltindy-Ow-fqko -FA (VINATE ONE) 60 mg iron-1 mg [...] quad (FLUZONE/FLUARIX) (6 months and older)(PF) 03/22/2022,02/16/2021,02/12/2020,2018,02/12/2018 Social History Tobacco Use Types Packs/Day Years [...] file 07/14/2022 How often do you attend [facility] or uatsdin services? More than 4 times per year 07/14/2022 Do you belong to any clubs o r organizations such as temple groups, unions, fraternal or athletic groups, or [...] Answer Date Recorded PHQ-2 Score 3 11/24/2020 [facility] of Occupat ional Health - Occupational Stress Questionnaire Answer Date Recorded [...] place to sleep or slept in a senior care (including now)? No 07/14/2022 Depression Answer Date [...] Sex Assigned at Female 06/10/2018 1:03 AM SECURITY PATROL DRIVER Legal Sex Female 6:12 PM SECURITY PATROL DRIVER Gender Identity Female 06/10/2018 1:03 AM SECURITY PATROL DRIVER Sexual Orientation Straight 06/10/2018 1: 03 AM SECURITY PATROL DRIVER Occupation Industry Job Start Date Job End [...] CDT Oxygen Saturation 96% 03/24/2022 7:14 PM SECURITY PATROL DRIVER Inhaled Oxygen Concentration - - Weight 71.7 kg (158 lb 1.1 oz) 08/28/2023 3:51 P M CDT Height 175 cm (5' 8.9) 05/13/2022 9:42 AM SECURITY PATROL DRIVER Body Mass Index 23.41 05/13/2022 9:42 AM SECURITY PATROL DRIVER Plan of Treatment Not on file Procedures Procedure Name Priority Date/Time Associated Diagnosis Comments HCV AB SCRN , S Routine 05/13/2022 9:37 AM SECURITY PATROL DRIVER Examination Normal First Trimester (HCC) HIV-1/-2 AG AND AB SCREEN, PLASMA Routine 05/13/2022 9:37 AM SECURITY PATROL DRIVER Examination Normal First Trimester (HCC) CHLAMYDIA/GONORRHOE AE AMPLIFIED RNA Routine 02/18/2022 12:06 PM CDT 12 Weeks Gestation (HCC) THINPREP SCREEN HPV REFLEX Routine 07/25/2018 12:09 PM CDT Exam (HCC) from Last 3 Months or Most Recently Relevant to Health Maintenance Results * Hepatitis C Virus Antibody Screen (05/13/2022 9:37 AM SECURITY PATROL DRIVER) HCV Ab Scrn , S Negative Negative 05/14/2022 1:59 PM SECURITY PATROL DRIVER [facility] Comment:Zgqsqd-gl-lcicer rat io is <1.00. Blood (Blood, Venous) 05/13/2022 9:37 AM SECURITY PATROL DRIVER 05/14/2022 9:01 AM SECURITY PATROL DRIVER us Diana Epps CNM, A.P.N.P. LAB MICROBIOLO GY - BLOOD ORDERABLES Final Result [facility] [address] [place] [address] [facility] [address] [place] [address] * HIV-1/-2 Ag and Ab Screen, Plasma (05/13/2022 9:37 AM SECURITY PATROL DRIVER) HIV Ag/Ab Screen, P Negative Negative 05/13/2022 6:19 PM SECURITY PATROL DRIVER [facility] Comment: Negative result does not rule out HIV infection. If exposure to HIV infection occurred <14 days ago, contact the laboratory to request addition of HIV-1 RNA detection / quantification test. HIV-1 p24 Ag Screen, P Negative Negative 05/13/2022 6:19 PM SECURITY PATROL DRIVER [facility] Comment: Negative result does not rule out HIV infection. If exposure to HIV infection occurred <14 days ago, contact the laboratory to request addition of HIV-1 RNA detection / quantification test. HIV-1 Ab Screen, P Negative Negative 2022 6:19 PM SECURITY PATROL DRIVER [facility] Comment: Negative result does not rule out HIV infection. If exposure to HIV infection occurred <14 days ago, contact the laboratory to request addition of HIV-1 RNA detection / quantification test. HIV-2 Ab Screen, P Negative Negative 2022 6:19 PM SECURITY PATROL DRIVER [facility] Comment: Negative result does not rule out HIV infection. If exposure to HIV infection occurred <14 days ago, contact the laboratory to request addition of HIV-1 RNA detection / quantification test. Blood (Blood, Venous) 05/13/2022 9:37 AM SECURITY PATROL DRIVER 05/13/2022 2:58 PM SECURITY PATROL DRIVER us Diana Epps CNM, A.P.N.P. LAB MICROBIOLO GY - BLOOD ORDERABLES Final Result [facility] [address] [place] [address], [facility] [place] [address] [place] [id number] * Chlamydia / Gonorrhoeae Amplified RNA (02/18/2022 [...] 12:06 PM CDT 02/19/2022 12:13 AM CDT us Carol Patten M.D. LAB MICROBIOLOGY - GENERAL ORDERABLES Final Result Performing Organization Address City/[facility]/ZIP Co de Phone Number [facility] [address] [place] [id number], [facility] in [address] [address] * ThinPrep Screen HPV Reflex (07/25/2018 12:09 PM CDT) 07/27/2018 1:44 PM CDT [facility] Report electronically signed by KELLY Escalante(ASCP) I verify that I have examined all relevant slides/materials for the specimen(s) and rendered or confirmed the diagnosis. 07/27/2018 1:44 PM CDT [facility] Gross Description Received specimen in a ThinPrep vial. 07/27/2018 1:44 PM CDT [facility] Pap Test Source Cervical/Endocervi selena 07/27/2018 1:44 PM CDT [facility] Interpretation Cervical/Endocervi selena ??(ThinPrep): Satisfactory for Evaluation Endocervical/trans formation zone components absent Negative for Intraepithelial Lesion or Malignancy Shift in segundo suggestive of bacterial vaginosis 07/27/2018 1:44 PM CDT [facility] Varies (Cervix/Endocerv ix) 07/25/2018 12:09 PM CDT 07/26/2018 9:17 AM CDT us Natalia Santos CNM LAB PAP PATHDX ORDERABLES Final Result [facility] [address] [place] [address], [facility] from Last 3 Months or Most Recently Relevant to Health Maintenance Administered Medications Insurance [facility] Advance Directives For more information, please contact: [phone] * Full Code (Latest Code Status on [...] Answer Comments Full Code: Discussed Care Teams Immersion Metal Cleaner Relationship Specialty Start Date End Date Elsewhere, Pcp PCP - General Family Medicine 03/12/19
--- OUTSIDE RECORDS SUMMARY | 2024-03-10 02:20 | XMS_ITS | Clinical Summary ---
Author Organization [facility] Address [place], [place] [address] Care Team Providers Care Umbrella Tipper Name Role Phone Pcp, No Primary Care Provider Unavailabl e Allergies No known active allergies Medications Medication Sig Dispensed Refills Start Date End Date Status PNV no.95/ferrous fum/folic ac ( MULTIVITAMINS ORAL) Take by mouth. A ctive ondansetron (ZOFRAN ODT) 4 mg disintegrating tabletIndications:Nause a Place 2 Tablets (8 mg) on the tongue two times daily. 10 Tablet 01/05/2022 Active doxylamine (UNISOM) 25 mg tablet Take 1 Tablet (25 mg) by mouth at bedtime if needed for Sleep. 0 01/05/2022 Active Active Problems Problem Noted Date Diagnosed Date Normal , first trimester 01/05/2022 Anxiety 10/23/2019 Seizure 07/01/2013 Overview (01/05/2022): Convulsions/spells/seizures* Comments Yes Immunizations Name Administration Dates Next Due DTaP 11/10/2008, 2,03/30/1998,1996,01/28/1997,1996 HIB PRP-OMP (PedvaxHIB) 10/10/1997,04/01,01/28/1997,1996 Hepatitis B (Peds) 1996 Hepatitis B, Unspecified 06/27/1997,1996,0 1996 Hib Conjugate, Unspecified 04/01/1997,01/28/1997 ,1996 Human Papilloma Virus Vaccine 05/29/2009, 009,11/10/2008 Inactivated Polio Vaccine 10/29/2001 Influenza, IIV4 02/16/2021, 0,03/12/2019,2017 Influenza,LAIV3 Live Intrana moni (Flumist) 03/01/2010 MMR 06/12/2018,10/29/2001,10/10/1997 Oral Polio Vaccine 04/01/1997,01/28/1997, 997 Polio Virus, Unspecified 10/29/2001,12/1996,01/28/1997,1996 Rabies Vaccine 11/11/2013, 4,10/31/2013,2013 Tdap 02/12/2020, 8,10/28/2013,2008 Varicella Vaccine 03/10/2009,10/10/1997 Family History Medical History Relation Name Comments Hyperlipidemia Father Hypertension Father Liver cancer Father Heart Disease Mother Leukemia Sister Relation Name Status Comments Brother Alive Father Alive Mother Alive Sister Alive Social History Tobacco Use Types Packs/Day Years Used Date Smoking Tobacco: Never Smokeless Tobacco: Never Alcohol Use Standard Drinks/Week Comments Not Currently 0 (1 standard drink = 0.6 oz pur e alcohol) Comments Yes Sex and Gender Information Value Date Recorded Sex Assigned at Not on file Gender Identity Not on file Sexual Orientation Not on file Obstetrics History Para Term AB IAB SAB Ectopic Multiple Livin g Live Births 1 Date Outcome GA Total Labor Labor/2nd/3rd Weight Sex Type Anes PTL Keyonna A1 A5 Name Clin Current Last Filed Vital Signs Vital Sign Reading Time Taken Comments Blood Pressure 103/54 01/05/2022 11:04 AM CDT Pulse 68 01/05/2022 11:04 AM CDT Temperature 36.3 ??C (97.3 ??F) 01/05/2022 9:49 AM CD T Respiratory Rate 16 01/05/2022 9:49 AM CDT Oxygen Saturation 100% 01/05/2022 11:04 AM CDT Inhaled Oxygen Concentration - - Weight 68.7 kg (151 lb 6.4 oz) 01/05/2022 9:49 A M CDT Height 172.7 cm (5' 8) 01/05/2022 9:49 AM CDT Body Mass Index 23.02 01/05/2022 9:49 AM CDT Plan of Treatment Not on file Care Teams Umbrella Tipper Relationship Specialty Start Date End Date Pcp, No . PCP - General 01/03/22
--- NOTE | 2024-03-10 02:24 | ED_ITS ---
HPI - Abdominal Pain General Date Seen: 03/10/24 Chief Complaint: Abdominal Pain Stated Complaint: 36wks , abdominal pain Time Seen by Provider: 03/10/24 01:27 Source: patient and family Mode of arrival: ambulatory Limitations: no limitations History of Present Illness HPI narrative: This 28-year-old lady is 36 weeks , presents here after being seeing an OB, and cleared that the baby is fine, she describes upper abdominal pain both right left for the last 4 5 days, had 1 episode of vomiting, but she does not know if this is actually pertinent as she has had vomiting on off during the . She does not have any fevers or chills, no dysuria frequency, baby is moving well. There is no vaginal discharge, she has been eating less during this time period, but has been able to eat a little bit. She is unsure if actually eating makes it better or worse. Does help however to have a warm cloth across her upper abdominal region. Did have reflux early in the . This feels different. No history of previous abdominal surgeries, here today with her . Related Data Home Medications ?Medication ?Instructions ?Recorded ?Confirmed prenat.vits,selena,[id number]-[id number]-keejf 1 tab PO QDAY 07/21/22 03/10/24 Previous Rx's ?Medication ?Instructions ?Recorded ferrous sulfate 325 mg (65 mg 325 mg PO Q OTHER DAY #60 tabs 01/09/24 iron) tablet Allergies Allergy/AdvReac Type Severity Reaction Status Date / Time No Known Drug Allergies Allergy Verified 03/08/24 10:25 Review of Systems Status of ROS Reports: 10 or more systems reviewed and unremarkable except as noted in History and below [facility] Medical History Normal vaginal delivery ?O80 - Encounter for full-term uncomplicated delivery (ICD-10) Vaginal delivery ?O80 - Encounter for full-term uncomplicated delivery (ICD-10) Autonomic dysfunction ?G90.9 - Disorder of the autonomic nervous system, unspecified (ICD-10) Family History Mother Heart disease Sister Leukemia Father Heart disease Social History Narrative: SOCIAL? ? Education: associates X 2? ? Work: stay at home mom? ? Partner: Sonido, , project specialist for construction? ? Lives with: Sonido, kids? ? Pets: dog, cat ? ? Abuse: Denies past Safe at home with current partner ? ? Special Diet: Denies? ? Ok with a blood transfusion: yes? ? Culture or quaker beliefs: denies? RISK FACTORS? ? Exercise Times/wk: occasional walking ? Depression/Anxiety: both? ? Previous Treatments: Denies Therapy: previously JOE: 3 PHQ 9: 9? ? Seat Belt Use: Routinely ? Smoking: Denies present? ? Smoked socially during college for 2-3 years, Alcohol/day: Denies while ? ? Caffeine: denies? ? Drug Use: Denies past/present? ? What is your current living situation?: I presently have a place to live Problems where you live: no known problems In the past 12 months, utilities in danger of being shut off: no In the past 12 mos, have been you worried that your food would run out before you had money to buy more?: never true In the past 12 mos, the food you bought just didn't last and you didn't have money to buy more?: never true Smoking Status: Former smoker How often does anyone, including family, friends and others, physically hurt you : never How often does anyone, including family, friends and others, insult or talk down to you: never How often does anyone, including family, friends and others, threaten you with harm: never How often does anyone, including family, friends and others, scream or curse at you: never Exam Narrative: Exam Narrative: On examination she is in no apparent distress she is pleasant and alert. She is seen in room 7. Her pupils equal round reactive to light there is no scleral icterus redness TMs are normal oropharynx normal her chest is good air entry bilaterally. She obviously has a gravid uterus. Appears normal for her dates. Baby is moving, she has absolutely no tenderness to palpation or upper abdominal region, no peritoneal signs, bowel sounds are normal. No CVA tenderness is elicited. Const: Vital Signs, click to edit/add: Vital Signs - 24 hr 03/10/24 01:30 Temperature 98.2 F Pulse Rate [Pulse Oximeter] 94 Respiratory Rate 16 Blood Pressure [Ri ght Upper Arm] 117/77 Pulse Oximetry 95 Oxygen Delivery Me thod Room Air Documenting provider has reviewed patient's vital signs: yes Course Vital Signs Vital signs: Initial Vital Signs Temperature 98.2 F 03/10/24 01:30 Temperature Source Temporal Artery Scan 03/10/24 01:30 Pulse Rate 94 03/10/24 01:30 Respiratory Rate 16 03/10/24 01:30 Blood Pressure 117/77 03/10/24 01:30 Blood Pressure Mean 90 03/10/24 01:30 Blood Pressure Position Sitting 03/10/24 01:30 Pulse Oximetry 95 03/10/24 01:30 Oxygen Delivery Method Room Air 03/10/24 01:30 Vital Signs Temperature 98.2 F 03/10/24 01:30 Pulse Rate 94 03/10/24 01:30 Respiratory Rate 16 03/10/24 01:30 Blood Pressure 117/77 03/10/24 01:30 Pulse Oximetry 95 03/10/24 01:30 Oxygen Delivery Method Room Air 03/10/24 01:30 Temperature 98.2 F 03/10/24 01:30 Pulse Rate 94 03/10/24 01:30 Respiratory Rate 16 03/10/24 01:30 Blood Pressure 117/77 03/10/24 01:30 Pulse Oximetry 95 03/10/24 01:30 Oxygen Delivery Method Room Air 03/10/24 01:30 Medications Administered Medications: Generic Name Dose Route Start Last Admin Trade Name Freq PRN Reason Stop Dose Admin Lidocaine/Aluminum/Magnesium/Simeth 30 ml 03/10/24 02:02 03/10/24 02:05 Gi Cocktail (Visc Lido/Antacid) 30 Ml PO 03/10/24 02:03 30 ml ONCE ONE Administration MDM - Abdominal Pain MDM Narrative Medical decision making narrative: During the evaluation of this patient I considered multiple differential diagnosis including life-threatening differentials which are appendicitis, a ortic aneurysm, mesenteric ischemia, bowel perforation, ectopic , volvulus and bowel obstruction, other differential diagnosis include but are not limited to inflammatory bowel disease, cholecystitis, pancreatitis, hepatitis, gastritis, GERD, diverticulitis, peptic ulcer disease, pyelonephritis/UTI, renal colic/stone, pelvic inflammatory disease, cervicitis, endometritis, intrauterine , dysfunctional uterine bleeding, ovarian cyst/torsion, spontaneous as well as other etiologies, They did do blood test, down in OB. I reviewed these for her white count was normal at 8, hemoglobin has been stable during the at 10. Comprehensive metabolic panel shows mildly low potassium at 3.2. Normal creatinine, normal LFTs, and normal lipase which I added on. Urinalysis is normal I did ultrasound which showed a normal fasting gallbladder, negative Ferguson sign. I did not see any evidence of shadowing with stones there is a little bit of sludge. Kidneys bilaterally look normal with no hydronephrosis. I had a long discussion with her. Over the cause of her pain which I believe is most likely related to GI I do not think this is constipation. It could be gastritis or early peptic ulcer disease. Or possibly some reflux. Although these are treated very effectively with omeprazole. She has some at home. Further we did give her a GI cocktail which helped her discomfort here. We talked about doing further testing such as CT scanning, as she did bring up appendix. I cannot say for 100% certain it was not this but I feels very unlikely given what I see here. She was able to walk got here with no problems at all. Differential Diagnosis Differential diagnosis: Likely abdominal pain, acute appendicitis, calculus of kidney, constipation, diverticulitis, gastroenteritis, pancreatitis and small bowel obstruction Medical Records Attestation: I reviewed the patient's medical records. Lab Data Attestation: I reviewed the patient's lab results. Labs: Lab Results 03/10/24 Range/Units 01:56 Lipase 45 (23-300) U/L Discharge Plan Discharge Clinical Impression: Abdominal pain, with 36 completed weeks gestation Patient Disposition: Home w/ Parent or Adult Condition: Stable Instructions: Abdominal Pain in (ED) Additional Instructions: Like I said I think this is related to either a stomach issue or possibly reflux, early peptic ulcer could also cause a similar type presentation. They were all treated with omeprazole and those type of medications anyway, more of a bland diet is also helpful. Omeprazole is safe in . Take 40 mg a day, this is [id number]-[id number] and hyper just that cheapest at [employer] If your pain worsens, you develop a fever, chills, worsening vomiting then please come back and we would consider doing a CT scan to rule out other possibilities. CT scans do not work very well for diagnosing peptic ulcer disease, until you actually have a hole. Activity Level: Light activity Discharge Diet: Other Diet Detail: [place] diet Prescriptions: No Action ferrous sulfate 325 mg (65 mg iron) tablet 325 mg PO Q OTHER DAY Qty: 60 2RF prenat.vits,selena,[id number]-pbawb Tablet 1 tab PO QDAY Follow Up/Referrals: Suad Patten MD [Primary Care Provider] - Stand Alone Forms: [employer] Info Instructions
== END 2024-03-10 02:31 | disposition home or self-care (01) ==
PROVIDERS: Emergency Provider Family Medicine; PCP Physical Medicine & Rehabilitation Pain Medicine
DX: R10.9 Unspecified abdominal pain (principal); Z3A.36 36 weeks gestation of pregnancy
CPT/HCPCS: 36415; 83690; 99283; 99284; A9270

== ENCOUNTER 2024-03-18 08:30 | Outpatient (RCR) | payer OTHER, SELFPAY ==
--- NOTE | 2024-03-05 13:33 | PC.NURSE ---
Diagnosis: Iron Deficiency Anemia in
--- NOTE | 2024-03-05 13:41 | URNOTE ---
Request received for authorization for Terence ([id number]). Prior authorization is not required Per [facility] website, Ref#[id number].
[2024-03-08 10:15] VITALS: BP 130/71; PULSE 80; RESP 16; TEMP 36.3; O2SAT 97
[2024-03-08] MEDS: SODIUM CHLORIDE 0.9 % (FLUSH) 10 ML SYRINGE IVF (10:30)
[2024-03-08] MEDS: 0.9 % SODIUM CHLORIDE 500 ML IV (10:30)
[2024-03-08] MEDS: IRON SUCROSE COMPLEX 200 MG in 0.9 % SODIUM CHLORIDE 100 ml 100 ML 440 MG IVPB (10:40)
[2024-03-08 11:01] VITALS: BP 102/65; PULSE 65; RESP 16; O2SAT 96
[2024-03-11 08:34] VITALS: BP 116/76; PULSE 87; RESP 18; TEMP 36.4; O2SAT 99
[2024-03-11] MEDS: IRON SUCROSE COMPLEX 200 MG in 0.9 % SODIUM CHLORIDE 100 ml 100 ML 440 MG IVPB (09:04)
[2024-03-11] MEDS: 0.9 % SODIUM CHLORIDE 500 ML IV (09:04)
[2024-03-11] MEDS: SODIUM CHLORIDE 0.9 % (FLUSH) 10 ML SYRINGE IVF (09:04)
[2024-03-11 09:24] VITALS: BP 106/71; PULSE 80; RESP 16; O2SAT 95
[2024-03-13 09:13] VITALS: BP 111/74; PULSE 111; RESP 16; TEMP 36.3; O2SAT 97
[2024-03-13 09:17] VITALS: PULSE 99
[2024-03-13] MEDS: IRON SUCROSE COMPLEX 200 MG in 0.9 % SODIUM CHLORIDE 100 ml 100 ML 440 MG IVPB (09:37)
[2024-03-13] MEDS: SODIUM CHLORIDE 0.9 % (FLUSH) 10 ML SYRINGE IVF (09:38)
[2024-03-13 09:59] VITALS: BP 113/70; PULSE 96; RESP 16; TEMP 36.6; O2SAT 97
[2024-03-13 10:30] VITALS: BP 109/70; PULSE 99; RESP 16; TEMP 36.6; O2SAT 98
[2024-03-15 08:30] VITALS: BP 124/81; PULSE 87; RESP 18; TEMP 36.3; O2SAT 100
[2024-03-15] MEDS: SODIUM CHLORIDE 0.9 % (FLUSH) 10 ML SYRINGE IVF ×2 (08:55→09:18)
[2024-03-15] MEDS: IRON SUCROSE COMPLEX 200 MG in 0.9 % SODIUM CHLORIDE 100 ml 100 ML 440 MG IVPB (09:00)
[2024-03-15 09:20] VITALS: BP 117/75; PULSE 86; RESP 16; O2SAT 97
[2024-03-18 08:38] VITALS: BP 130/77; PULSE 106; RESP 16; TEMP 35.8; O2SAT 97
[2024-03-18] MEDS: SODIUM CHLORIDE 0.9 % (FLUSH) 10 ML SYRINGE IVF (09:19)
[2024-03-18] MEDS: IRON SUCROSE COMPLEX 200 MG in 0.9 % SODIUM CHLORIDE 100 ml 100 ML 440 MG IVPB (09:19)
[2024-03-18 09:41] VITALS: BP 124/72; PULSE 92; RESP 16; O2SAT 97
== END 2024-09-04 23:59 | disposition home or self-care (01) ==
LOC: CCIC 08:30
PROVIDERS: PCP Physical Medicine & Rehabilitation Pain Medicine; Visit Provider Clinical Nurse Specialist
DX: O99.013 Anemia complicating pregnancy, third trimester (principal); D50.9 Iron deficiency anemia, unspecified
CPT/HCPCS: 96365; 96374; J1756; J7030

== ENCOUNTER 2024-03-25 15:02 | Outpatient (CLI) | payer OTHER, SELFPAY ==
--- NOTE | 2024-03-25 15:00 | CRLHL7_ITS ---
For Patients: As a result of the Century Cures Act, medical imaging exams and procedure reports are released immediately into your electronic medical record. You may view this report before your referring provider. If you have questions, please contact your health care provider. INDICATION: Third trimester scan, evaluate growth. fundal height measuring small for dates. COMPARISON: 11/16/2023 TECHNIQUE: Real time sheehan scale imaging of the fetus was performed. FINDINGS: Sonographic imaging demonstrates a single living intrauterine gestation. Fetus demonstrates a regular cardiac rate of 131 beats per minute. Fetus has a vertex position. The placenta lies anteriorly. Amniotic fluid volume appears normal and there is a single deepest vertical pocket: 5.4 cm. The estimated weight is 3900gm which lies at the 87th %. On the prior OB ultrasound exam dated 11/16/2023 the estimated weight was at the 84th%. BPD 13th percentile. HC 61st percentile. AC greater than 97th percentile. FL 54th percentile. The HC/AC ratio measures 0.93 range (0.87-1.06). IMPRESSION: Sonographic gestational age 39 weeks 0 days and a sonographic due date of 04/01/2024. Good correlation with dates. Normal interval growth. Estimated weight 87th percentile. Abdominal circumference greater than 97th percentile. Dictated by Thomas Cast MD @ 03/26/2024 11:21:10 AM (Electronically Signed)
--- OUTSIDE RECORDS SUMMARY | 2024-03-25 15:05 | XMS_ITS | Clinical Summary ---
Author Organization [facility] Address [place], [place] [address] Care Team Providers Care Shirt Folder Name Role Phone Pcp, No Primary Care [...] 68 01/05/2022 11:04 AM CDT Temperature 36.3 C (97.3 F) 01/05/2022 9:49 AM CDT Respiratory Rate 16 01/05/2022 9:49 AM CDT Oxygen Saturation 100% 01/05/2022 11:04 AM CDT Inhaled Oxygen Concentration - - Weight 68.7 kg (151 lb 6.4 oz) 01/05/2022 9:49 A M CDT Height 172.7 cm (5' 8) 01/05/2022 9:49 AM CDT Body Mass Index 23.02 01/05/2022 9:49 AM CDT Plan of Treatment Not on file Care Teams Shirt Folder Relationship Specialty Start Date End Date Pcp, No . PCP - General 01/03/22
--- OUTSIDE RECORDS SUMMARY | 2024-03-25 15:05 | XMS_ITS | Clinical Summary ---
Author Organization [facility] Address [address] [place] [address] Care Team Providers Care Supervisor Shellfish Farming Name Role Phone Elsewhere, Pcp Primary Care Provider Unavailabl e Source Comments Patient records contain information from all sites at [facility]. For routine questions regarding patient records, call [phone] during business hours, M-F 8:00 AM - 5:00 PM Central Time. Record requests for emergency care only can be directed to [phone] at any time.[facility] Allergies No known active allergies Medications * This document contains information received from the source organization and may not represent a complete record from that organization. [id number]-[id number] -FA (VINATE ONE) 60 mg iron-1 mg [...] 07/14/2022 How often do you attend [facility] or sikhism services? More than 4 times per year 07/14/2022 Do you belong to any clubs o r organizations such as nondenominational groups, unions, fraternal or athletic groups, or [...] Answer Date Recorded PHQ-2 Score 3 11/24/2020 [facility] - Occupational Stress Questionnaire Answer [...] to sleep or slept in a senior living (including now)? No 07/14/2022 Depression Answer Date [...] Sex Assigned at Female 06/10/2018 1:03 AM DECAL TRANSFERRER Legal Sex Female 6:12 PM DECAL TRANSFERRER Gender Identity Female 06/10/2018 1:03 AM DECAL TRANSFERRER Sexual Orientation Straight 06/10/2018 1: 03 AM DECAL TRANSFERRER Occupation Industry Job Start Date Job End Date Not on file Not on file Not on file Not on file Last Filed Vital Signs Vital Sign Reading Time Taken Comments Blood Pressure 106/74 08/28/2023 3:51 PM CDT Pulse 96 08/28/2023 3:51 PM CDT Temperature 36.4 C (97.5 F) 08/28/2023 3:51 PM CDT Respiratory Rate 16 09/20/2022 6:47 PM CDT Oxygen Saturation 96% 03/24/2022 7:14 PM DECAL TRANSFERRER Inhaled Oxygen Concentration - - Weight 71.7 kg (158 lb 1.1 oz) 08/28/2023 3:51 P M CDT Height 175 cm (5' 8.9) 05/13/2022 9:42 AM DECAL TRANSFERRER Body Mass Index 23.41 05/13/2022 9:42 AM DECAL TRANSFERRER Plan of Treatment Health Maintenance Due Date Last Done Comments Cervical/Vaginal Cancer Screening 07/25/2021 07/25/2018 Depression Screening (Annual PHQ-2) 04/24/2023 COVID-19 Vaccine (2023- season) 2023 Influenza Vaccine (#1) 2024 , [...] SCRN , S Routine 05/13/2022 9:37 AM DECAL TRANSFERRER Examination Normal First Trimester (HCC) HIV-1/-2 AG AND AB SCREEN, PLASMA Routine 05/13/2022 9:37 AM DECAL TRANSFERRER Examination Normal First Trimester (HCC) CHLAMYDIA/GONORRHOE AE AMPLIFIED RNA Routine 02/18/2022 12:06 PM CDT 12 Weeks Gestation (HCC) THINPREP SCREEN HPV REFLEX Routine 07/25/2018 12:09 PM CDT Exam (HCC) from Last 3 Months or Most Recently Relevant to Health Maintenance Results * Hepatitis C Virus Antibody Screen (05/13/2022 9:37 AM DECAL TRANSFERRER) HCV Ab Scrn , S Negative Negative 05/14/2022 1:59 PM DECAL TRANSFERRER [facility] Comment:Mfoupg-ul-wejpyu rat io is <1.00. Blood (Blood, Venous) 05/13/2022 9:37 AM DECAL TRANSFERRER 05/14/2022 9:01 AM DECAL TRANSFERRER Diana Epps CNM, A.P.N.P. LAB MICROBIOLO GY - BLOOD ORDERABLES Final Result [facility] [address] [place] [address] [facility] [address] [place] [address] * HIV-1/-2 Ag and Ab Screen, Plasma (05/13/2022 9:37 AM DECAL TRANSFERRER) [facility] HIV Ag/Ab Screen, P Negative Negative 05/13/2022 6:19 PM DECAL TRANSFERRER [facility] Comment: Negative result does not rule out HIV infection. If exposure to HIV infection occurred <14 days ago, contact the laboratory to request addition of HIV-1 RNA detection / quantification test. HIV-1 p24 Ag Screen, P Negative Negative 05/13/2022 6:19 PM DECAL TRANSFERRER [facility] Comment: Negative result does not rule out HIV infection. If exposure to HIV infection occurred <14 days ago, contact the laboratory to request addition of HIV-1 RNA detection / quantification test. HIV-1 Ab Screen, P Negative Negative 2022 6:19 PM DECAL TRANSFERRER [facility] Comment: Negative result does not rule out HIV infection. If exposure to HIV infection occurred <14 days ago, contact the laboratory to request addition of HIV-1 RNA detection / quantification test. HIV-2 Ab Screen, P Negative Negative 2022 6:19 PM DECAL TRANSFERRER [facility] Comment: Negative result does not rule out HIV infection. If exposure to HIV infection occurred <14 days ago, contact the laboratory to request addition of HIV-1 RNA detection / quantification test. Blood (Blood, Venous) 05/13/2022 9:37 AM DECAL TRANSFERRER 05/13/2022 2:58 PM DECAL TRANSFERRER Diana Epps CNM, A.P.N.P. LAB MICROBIOLO GY - BLOOD ORDERABLES Final Result Performing Organization Address [facility] Co de Phone Number [facility] [address] [place] [address], [facility] [place] [address] [place] [address] * Chlamydia / Gonorrhoeae Amplified RNA (02/18/2022 [...] GENERAL ORDERABLES Final Result Performing Organization Address [facility] Co de Phone Number [facility] [address] [place] [address], [facility] [place] [address] [place] [address] * ThinPrep Screen HPV Reflex (07/25/2018 12:09 PM CDT) 07/27/2018 1:44 PM CDT [facility] Report electronically signed by KELLY Escalante(ASCP) I verify that I have examined all relevant slides/materials for the specimen(s) and rendered or confirmed the diagnosis. 07/27/2018 1:44 PM CDT [facility] Gross Description Received specimen in a ThinPrep vial. 07/27/2018 1:44 PM CDT [facility] Pap Test Source Cervical/Endocervi selena 07/27/2018 1:44 PM CDT [facility] Interpretation Cervical/Endocervi selena (ThinPrep): Satisfactory for Evaluation Endocervical/trans formation zone components absent Negative for Intraepithelial Lesion or Malignancy Shift in segundo suggestive of bacterial vaginosis 07/27/2018 1:44 PM CDT [facility] Varies (Cervix/Endocerv ix) 07/25/2018 12:09 PM CDT 07/26/2018 9:17 AM CDT us Natalia Santos CN LAB PAP PATHDX ORDERABLES Final Result [facility] [address] [place] [address], [facility] from Last 3 Months or Most Recently Relevant to Health Maintenance Insurance [facility] Advance Directives For more information, please contact: [phone] * Full Code (Latest Code Status on [...] Answer Comments Full Code: Discussed Care Teams Supervisor [employer] Relationship Specialty Start Date End Date Elsewhere, Pcp PCP - General Family Medicine 03/12/19
--- OUTSIDE RECORDS SUMMARY | 2024-03-25 15:05 | XMS_ITS | Referral Summary ---
Author Organization [facility] Address [address] [place] [address] Care Team Providers Care Central Sterile Supply Technician Name Role Phone Elsewhere, Pcp Primary Care Provider Unavailabl e Source Comments Patient records contain information from all sites at [facility]. For routine questions regarding patient records, call [phone] during business hours, M-F 8:00 AM - 5:00 PM Central Time. Record requests for emergency care only can be directed to [phone] at any time.[facility] Allergies No known active allergies Medications * This document contains information received from the source organization and may not represent a complete record from that organization. [id number]-[id number] -FA (VINATE ONE) 60 mg iron-1 mg [...] file 07/14/2022 How often do you attend [facility] or roman catholic services? More than 4 times per year 07/14/2022 Do you belong to any clubs o r organizations such as judaism groups, unions, fraternal or athletic groups, or [...] Answer Date Recorded PHQ-2 Score 3 11/24/2020 [facility]at ional [facility] - Occupational Stress [...] Sex Assigned at Female 06/10/2018 1:03 AM PRESSURE CONTROL SUPERVISOR Legal Sex Female 6:12 PM PRESSURE CONTROL SUPERVISOR Gender Identity Female 06/10/2018 1:03 AM PRESSURE CONTROL SUPERVISOR Sexual Orientation Straight 06/10/2018 1: 03 AM PRESSURE CONTROL SUPERVISOR Occupation Industry Job Start Date Job End [...] CDT Oxygen Saturation 96% 03/24/2022 7:14 PM PRESSURE CONTROL SUPERVISOR Inhaled Oxygen Concentration - - Weight 71.7 kg (158 lb 1.1 oz) 08/28/2023 3:51 P M CDT Height 175 cm (5' 8.9) 05/13/2022 9:42 AM PRESSURE CONTROL SUPERVISOR Body Mass Index 23.41 05/13/2022 9:42 AM PRESSURE CONTROL SUPERVISOR Plan of Treatment Not on file Procedures Procedure Name Priority Date/Time Associated Diagnosis Comments HCV AB SCRN , S Routine 05/13/2022 9:37 AM PRESSURE CONTROL SUPERVISOR Examination Normal First Trimester (HCC) HIV-1/-2 AG AND AB SCREEN, PLASMA Routine 05/13/2022 9:37 AM PRESSURE CONTROL SUPERVISOR Examination Normal First Trimester (HCC) CHLAMYDIA/GONORRHOE AE AMPLIFIED RNA Routine 02/18/2022 12:06 PM CDT 12 Weeks Gestation (HCC) THINPREP SCREEN HPV REFLEX Routine 07/25/2018 12:09 PM CDT Exam (HCC) from Last 3 Months or Most Recently Relevant to Health Maintenance Results * Hepatitis C Virus Antibody Screen (05/13/2022 9:37 AM PRESSURE CONTROL SUPERVISOR) HCV Ab Scrn , S Negative Negative 05/14/2022 1:59 PM PRESSURE CONTROL SUPERVISOR [facility] Comment:Gqvori-eo-yicfnn rat io is <1.00. Blood (Blood, Venous) 05/13/2022 9:37 AM PRESSURE CONTROL SUPERVISOR 05/14/2022 9:01 AM PRESSURE CONTROL SUPERVISOR us Diana Epps CNM, A.P.N.P. LAB MICROBIOLO GY - BLOOD ORDERABLES Final Result [facility] [address] [place] [id number] [facility] [address] [place] [id number] * HIV-1/-2 Ag and Ab Screen, Plasma (05/13/2022 9:37 AM PRESSURE CONTROL SUPERVISOR) HIV Ag/Ab Screen, P Negative Negative 05/13/2022 6:19 PM PRESSURE CONTROL SUPERVISOR [facility] Comment: Negative result does not rule out HIV infection. If exposure to HIV infection occurred <14 days ago, contact the laboratory to request addition of HIV-1 RNA detection / quantification test. HIV-1 p24 Ag Screen, P Negative Negative 05/13/2022 6:19 PM PRESSURE CONTROL SUPERVISOR [facility] Comment: Negative result does not rule out HIV infection. If exposure to HIV infection occurred <14 days ago, contact the laboratory to request addition of HIV-1 RNA detection / quantification test. HIV-1 Ab Screen, P Negative Negative 2022 6:19 PM PRESSURE CONTROL SUPERVISOR [facility] Comment: Negative result does not rule out HIV infection. If exposure to HIV infection occurred <14 days ago, contact the laboratory to request addition of HIV-1 RNA detection / quantification test. HIV-2 Ab Screen, P Negative Negative 2022 6:19 PM PRESSURE CONTROL SUPERVISOR [facility] Comment: Negative result does not rule out HIV infection. If exposure to HIV infection occurred <14 days ago, contact the laboratory to request addition of HIV-1 RNA detection / quantification test. Blood (Blood, Venous) 05/13/2022 9:37 AM PRESSURE CONTROL SUPERVISOR 05/13/2022 2:58 PM PRESSURE CONTROL SUPERVISOR us Diana Epps CNM, A.P.N.P. LAB MICROBIOLO GY - BLOOD ORDERABLES Final Result [facility] [address] [place] [address], [facility] [place] [address] [place] [address] * Chlamydia / Gonorrhoeae Amplified RNA (02/18/2022 [...] LAB MICROBIOLOGY - GENERAL ORDERABLES Final Result [facility] [address] [place] [address], [facility] [place] [address] [place] [address] * ThinPrep Screen HPV Reflex (07/25/2018 12:09 PM CDT) 07/27/2018 1:44 PM CDT [facility] Report electronically signed by KELLY Escalante(ASCP) I verify that I have examined all relevant slides/materials for the specimen(s) and rendered or confirmed the diagnosis. 07/27/2018 1:44 PM CDT [facility] Gross Description Received specimen in a ThinPrep vial. 07/27/2018 1:44 PM CDT [facility] Pap Test Source Cervical/Endocervi selena 07/27/2018 1:44 PM CDT [facility] Interpretation Cervical/Endocervi selena (ThinPrep): Satisfactory for Evaluation Endocervical/trans formation zone components absent Negative for Intraepithelial Lesion or Malignancy Shift in segundo suggestive of bacterial vaginosis 07/27/2018 1:44 PM CDT [facility] Varies (Cervix/Endocerv ix) 07/25/2018 12:09 PM CDT 07/26/2018 9:17 AM CDT us Natalia GONZALES LAB PAP PATHDX ORDERABLES Final Result Performing Organization Address City/State/[facility] Co de Phone Number [facility] [address] [place] [address], [facility] from Last 3 Months or Most Recently Relevant to Health Maintenance Administered Medications Insurance [facility] Advance Directives For more information, please contact: [phone] * Full Code (Latest Code Status on [...] Answer Comments Full Code: Discussed Care Teams Central Sterile Supply Technician Relationship Specialty Start Date End Date Elsewhere, Pcp PCP - General Family Medicine 03/12/19
--- OUTSIDE RECORDS SUMMARY | 2024-03-25 15:05 | XMS_ITS ---
Author Organization [facility] Address [address] [place] [address] Care Team Providers Care Travelers' Aid Worker Name Role Phone Unavailable Unavailable Unavailable Surgery Details Not on file Complications Check Surgery Details section. Procedure Estimated Blood Loss Check Surgery Details section. Procedure Findings Check Surgery Details section. Procedure Specimens Taken Check Surgery Details section.
== END 2024-03-25 15:03 | disposition home or self-care (01) ==
PROVIDERS: PCP Physical Medicine & Rehabilitation Pain Medicine; Visit Provider Advanced Practice Midwife
DX: O36.5930 Maternal care for other known or suspected poor fetal growth, third trimester, not applicable or unspecified (principal); Z3A.39 39 weeks gestation of pregnancy
CPT/HCPCS: 76816

== ENCOUNTER 2024-04-02 21:31 | Inpatient (IN) | payer OTHER, SELFPAY ==
[2024-04-02] VITALS (10 sets, daily range): BP systolic 120–137; BP diastolic 66–70; PULSE 91–99; TEMP 36.8; O2SAT 95–98
--- OUTSIDE RECORDS SUMMARY | 2024-04-02 20:57 | XMS_ITS | Clinical Summary ---
Author Organization [facility] Address [place], [place] [address] Care Team Providers Care Dockworker Name Role Phone Pcp, No Primary Care Provider Unavailabl e Allergies No known active allergies Medications PNV no.95/ferrous fum/folic ac ( MULTIVITAMINS ORAL) Take by mouth. Active ondansetron (ZOFRAN ODT) 4 mg disintegrating tabletIndications:N ausea Place 2 Tablets (8 mg) on the tongue two times daily. 10 Tablet 2 Active doxylamine (UNISOM) 25 mg tablet Take 1 Tablet (25 mg) by mouth at bedtime if needed for Sleep. 0 2 Active Active Problems Problem Noted Date Diagnosed [...] Recorded Sex Assigned at Not on file Legal Sex Female 6:58 PM PLANNING CONSULTANT Gender Identity Not on file Sexual Orientation [...] of Treatment Not on file Care Teams Dockworker Relationship Specialty Start Date End Date Pcp, No . PCP - General 01/03/22
--- OUTSIDE RECORDS SUMMARY | 2024-04-02 20:57 | XMS_ITS ---
Author Organization [facility] Address [address] [place] [address] Care Team Providers Care Fireworks Display Specialist Name Role Phone Unavailable Unavailable Unavailable Surgery Details Not on file Complications Check Surgery Details section. Procedure Estimated Blood Loss Check Surgery Details section. Procedure Findings Check Surgery Details section. Procedure Specimens Taken Check Surgery Details section.
--- OUTSIDE RECORDS SUMMARY | 2024-04-02 20:57 | XMS_ITS | Referral Summary ---
Author Organization [facility] Address [address] [place] [address] Care Team Providers Care Youth Services Librarian Name Role Phone Elsewhere, Pcp Primary Care Provider Unavailabl e Source Comments Patient records contain information from all sites at [facility]. For routine questions regarding patient records, call [phone] during business hours, M-F 8:00 AM - 5:00 PM Central Time. Record requests for emergency care only can be directed to [phone] at any time.[facility] Allergies No known active allergies Medications * This document contains information received from the source organization and may not represent a complete record from that organization. aeekfjw-Qt-stqq -FA (VINATE ONE) 60 mg iron-1 mg [...] file 07/14/2022 How often do you attend [facility] or judaism services? More than 4 times per year 07/14/2022 Do you belong to any clubs o r organizations such as presybeterian groups, unions, fraternal or athletic groups, or [...] Answer Date Recorded PHQ-2 Score 3 11/24/2020 [facility] Occupat ional Health - Occupational Stress [...] place to sleep or slept in a snf (including now)? No 07/14/2022 Depression Answer Date [...] Sex Assigned at Female 06/10/2018 1:03 AM DRAWING CHECKER Legal Sex Female 6:12 PM DRAWING CHECKER Gender Identity Female 06/10/2018 1:03 AM DRAWING CHECKER Sexual Orientation Straight 06/10/2018 1: 03 AM DRAWING CHECKER Occupation Industry Job Start Date Job End [...] CDT Oxygen Saturation 96% 03/24/2022 7:14 PM DRAWING CHECKER Inhaled Oxygen Concentration - - Weight 71.7 kg (158 lb 1.1 oz) 08/28/2023 3:51 P M CDT Height 175 cm (5' 8.9) 05/13/2022 9:42 AM DRAWING CHECKER Body Mass Index 23.41 05/13/2022 9:42 AM DRAWING CHECKER Plan of Treatment Not on file Procedures Procedure Name Priority Date/Time Associated Diagnosis Comments HCV AB SCRN , S Routine 05/13/2022 9:37 AM DRAWING CHECKER Examination Normal First Trimester (HCC) HIV-1/-2 AG AND AB SCREEN, PLASMA Routine 05/13/2022 9:37 AM DRAWING CHECKER Examination Normal First Trimester (HCC) CHLAMYDIA/GONORRHOE AE AMPLIFIED RNA Routine 02/18/2022 12:06 PM CDT 12 Weeks Gestation (HCC) THINPREP SCREEN HPV REFLEX Routine 07/25/2018 12:09 PM CDT Exam (HCC) from Last 3 Months or Most Recently Relevant to Health Maintenance Results * Hepatitis C Virus Antibody Screen (05/13/2022 9:37 AM DRAWING CHECKER) HCV Ab Scrn , S Negative Negative 05/14/2022 1:59 PM DRAWING CHECKER [facility] Comment:Rksjxw-bh-jctwrx rat io is <1.00. Blood (Blood, Venous) 05/13/2022 9:37 AM DRAWING CHECKER 05/14/2022 9:01 AM DRAWING CHECKER us Diana Epps CNM, A.P.N.P. LAB MICROBIOLO GY - BLOOD ORDERABLES Final Result [facility] [address] [place] [address] [facility] [address] [place] [address] * HIV-1/-2 Ag and Ab Screen, Plasma (05/13/2022 9:37 AM DRAWING CHECKER) HIV Ag/Ab Screen, P Negative Negative 05/13/2022 6:19 PM DRAWING CHECKER [facility] Comment: Negative result does not rule out HIV infection. If exposure to HIV infection occurred <14 days ago, contact the laboratory to request addition of HIV-1 RNA detection / quantification test. HIV-1 p24 Ag Screen, P Negative Negative 05/13/2022 6:19 PM DRAWING CHECKER [facility] Comment: Negative result does not rule out HIV infection. If exposure to HIV infection occurred <14 days ago, contact the laboratory to request addition of HIV-1 RNA detection / quantification test. HIV-1 Ab Screen, P Negative Negative 2022 6:19 PM DRAWING CHECKER [facility] Comment: Negative result does not rule out HIV infection. If exposure to HIV infection occurred <14 days ago, contact the laboratory to request addition of HIV-1 RNA detection / quantification test. HIV-2 Ab Screen, P Negative Negative 2022 6:19 PM DRAWING CHECKER [facility] Comment: Negative result does not rule out HIV infection. If exposure to HIV infection occurred <14 days ago, contact the laboratory to request addition of HIV-1 RNA detection / quantification test. Blood (Blood, Venous) 05/13/2022 9:37 AM DRAWING CHECKER 05/13/2022 2:58 PM DRAWING CHECKER us Diana Epps CNM, A.P.N.P. LAB MICROBIOLO GY - BLOOD ORDERABLES Final Result [facility] [address] [place] [address], [facility] [address] [place] [address] * Chlamydia / Gonorrhoeae Amplified RNA (02/18/2022 [...] LAB MICROBIOLOGY - GENERAL ORDERABLES Final Result [facility] [address] [place] [address], [facility] [place] [address] [place] [address] * ThinPrep Screen HPV Reflex (07/25/2018 12:09 PM CDT) 07/27/2018 1:44 PM CDT [facility] Report electronically signed by KELLY Escalante(ASCP) I verify that I have examined all relevant slides/materials for the specimen(s) and rendered or confirmed the diagnosis. 07/27/2018 1:44 PM CDT [facility] Gross Description Received specimen in a ThinPrep vial. 07/27/2018 1:44 PM CDT [facility] Pap Test Source Cervical/Endocervi selena 07/27/2018 1:44 PM CDT [facility] Interpretation Cervical/Endocervi selena (ThinPrep): Satisfactory for Evaluation Endocervical/trans formation zone components absent Negative for Intraepithelial Lesion or Malignancy Shift in segundo suggestive of bacterial vaginosis 07/27/2018 1:44 PM CDT [facility] Varies (Cervix/Endocerv ix) 07/25/2018 12:09 PM CDT 07/26/2018 9:17 AM CDT us Natalia GONZALES LAB PAP PATHDX ORDERABLES Final Result Performing Organization Address City/State/[facility] Co de Phone Number [facility] [address] [place] [address], [facility] from Last 3 Months or Most Recently Relevant to Health Maintenance Administered Medications Insurance [facility] Advance Directives For more information, please contact: [phone] * Full Code (Latest Code Status on [...] Answer Comments Full Code: Discussed Care Teams Youth Services Librarian Relationship Specialty Start Date End Date Elsewhere, Pcp PCP - General Family Medicine 03/12/19
--- OUTSIDE RECORDS SUMMARY | 2024-04-02 20:57 | XMS_ITS | Clinical Summary ---
Author Organization [facility] Address [address] [place] [address] Care Team Providers Care Screw Machine Operator Name Role Phone Elsewhere, Pcp Primary Care Provider Unavailabl e Source Comments Patient records contain information from all sites at [facility]. For routine questions regarding patient records, call [phone] during business hours, M-F 8:00 AM - 5:00 PM Central Time. Record requests for emergency care only can be directed to [phone] at any time.[facility] Allergies No known active allergies Medications * This document contains information received from the source organization and may not represent a complete record from that organization. njgvzop-Jt-udyz -FA (VINATE ONE) 60 mg iron-1 mg [...] file 07/14/2022 How often do you attend [facility] or advent services? More than 4 times per year 07/14/2022 Do you belong to any clubs o r organizations such as hindu groups, unions, fraternal or athletic groups, or [...] Answer Date Recorded PHQ-2 Score 3 11/24/2020 [facility] Occupat ional [facility] - Occupational Stress Questionnaire Answer [...] place to sleep or slept in a penitentiary (including now)? No 07/14/2022 Depression Answer Date [...] Sex Assigned at Female 06/10/2018 1:03 AM VETERINARY PHYSIOLOGIST Legal Sex Female 6:12 PM VETERINARY PHYSIOLOGIST Gender Identity Female 06/10/2018 1:03 AM VETERINARY PHYSIOLOGIST Sexual Orientation Straight 06/10/2018 1: 03 AM VETERINARY PHYSIOLOGIST Occupation Industry Job Start Date Job End [...] CDT Oxygen Saturation 96% 03/24/2022 7:14 PM VETERINARY PHYSIOLOGIST Inhaled Oxygen Concentration - - Weight 71.7 kg (158 lb 1.1 oz) 08/28/2023 3:51 P M CDT Height 175 cm (5' 8.9) 05/13/2022 9:42 AM VETERINARY PHYSIOLOGIST Body Mass Index 23.41 05/13/2022 9:42 AM VETERINARY PHYSIOLOGIST Plan of Treatment Health Maintenance Due Date [...] SCRN , S Routine 05/13/2022 9:37 AM VETERINARY PHYSIOLOGIST Examination Normal First Trimester (HCC) HIV-1/-2 AG AND AB SCREEN, PLASMA Routine 05/13/2022 9:37 AM VETERINARY PHYSIOLOGIST Examination Normal First Trimester (HCC) CHLAMYDIA/GONORRHOE AE AMPLIFIED RNA Routine 02/18/2022 12:06 PM CDT 12 Weeks Gestation (HCC) THINPREP SCREEN HPV REFLEX Routine 07/25/2018 12:09 PM CDT Exam (HCC) from Last 3 Months or Most Recently Relevant to Health Maintenance Results * Hepatitis C Virus Antibody Screen (05/13/2022 9:37 AM VETERINARY PHYSIOLOGIST) HCV Ab Scrn , S Negative Negative 05/14/2022 1:59 PM VETERINARY PHYSIOLOGIST [facility] Comment:Tbtonh-jq-lmrxdq rat io is <1.00. Blood (Blood, Venous) 05/13/2022 9:37 AM VETERINARY PHYSIOLOGIST 05/14/2022 9:01 AM VETERINARY PHYSIOLOGIST Diana Epps CNM, A.P.N.P. LAB MICROBIOLO GY - BLOOD ORDERABLES Final Result [facility] [address] [place] [address] [facility] [address] [place] [address] * HIV-1/-2 Ag and Ab Screen, Plasma (05/13/2022 9:37 AM VETERINARY PHYSIOLOGIST) [facility] HIV Ag/Ab Screen, P Negative Negative 05/13/2022 6:19 PM VETERINARY PHYSIOLOGIST [facility] Comment: Negative result does not rule out HIV infection. If exposure to HIV infection occurred <14 days ago, contact the laboratory to request addition of HIV-1 RNA detection / quantification test. HIV-1 p24 Ag Screen, P Negative Negative 05/13/2022 6:19 PM VETERINARY PHYSIOLOGIST [facility] Comment: Negative result does not rule out HIV infection. If exposure to HIV infection occurred <14 days ago, contact the laboratory to request addition of HIV-1 RNA detection / quantification test. HIV-1 Ab Screen, P Negative Negative 2022 6:19 PM VETERINARY PHYSIOLOGIST [facility] Comment: Negative result does not rule out HIV infection. If exposure to HIV infection occurred <14 days ago, contact the laboratory to request addition of HIV-1 RNA detection / quantification test. HIV-2 Ab Screen, P Negative Negative 2022 6:19 PM VETERINARY PHYSIOLOGIST [facility] Comment: Negative result does not rule out HIV infection. If exposure to HIV infection occurred <14 days ago, contact the laboratory to request addition of HIV-1 RNA detection / quantification test. Blood (Blood, Venous) 05/13/2022 9:37 AM VETERINARY PHYSIOLOGIST 05/13/2022 2:58 PM VETERINARY PHYSIOLOGIST Diana Epps CNM, A.P.N.P. LAB MICROBIOLO GY - BLOOD ORDERABLES Final Result Performing Organization Address [facility] Co de Phone Number [facility] [address] [place] [address], [facility] [place] [address] [place] [address] * Chlamydia / Gonorrhoeae Amplified RNA (02/18/2022 [...] GENERAL ORDERABLES Final Result Performing Organization Address [facility] Co de Phone Number [facility] [address] [place] [address], [facility] [place] [address] [place] [address] * ThinPrep Screen HPV Reflex (07/25/2018 12:09 PM CDT) 07/27/2018 1:44 PM CDT [facility] Report electronically signed by KELLY Escalante(ASCP) I verify that I have examined all relevant slides/materials for the specimen(s) and rendered or confirmed the diagnosis. 07/27/2018 1:44 PM CDT [facility] Gross Description Received specimen in a ThinPrep vial. 07/27/2018 1:44 PM CDT [facility] Pap Test Source Cervical/Endocervi selena 07/27/2018 1:44 PM CDT [facility] Interpretation Cervical/Endocervi selena (ThinPrep): Satisfactory for Evaluation Endocervical/trans formation zone components absent Negative for Intraepithelial Lesion or Malignancy Shift in segundo suggestive of bacterial vaginosis 07/27/2018 1:44 PM CDT [facility] Varies (Cervix/Endocerv ix) 07/25/2018 12:09 PM CDT 07/26/2018 9:17 AM CDT us Natalia Santos CN LAB PAP PATHDX ORDERABLES Final Result [facility] [address] [place] [address], [facility] from Last 3 Months or Most Recently Relevant to Health Maintenance Insurance [facility] Advance Directives For more information, please contact: [phone] * Full Code (Latest Code Status on [...] Answer Comments Full Code: Discussed Care Teams Screw Machine Operator Relationship Specialty Start Date End Date Elsewhere, Pcp PCP - General Family Medicine 03/12/19
[2024-04-02 21:57] LABS: Basophils Absolute Auto 0.02 K/uL (0.00-0.30); Basophils Percent Auto 0.2 % (0.0-3.0); Eosinophils Absolute Auto 0.07 K/uL (0.00-0.50); Eosinophils Percent Auto 0.7 % (0.0-7.0); Hematocrit 35.4 % (33.0-51.0); Hemoglobin* 11.8 gm/dL (12.0-16.0); Immature Granulocytes Abs Auto 0.08 K/uL (0.00-0.30); Immature Granulocytes Pct Auto 0.8 %; Lymphocytes Percent Auto 15.6 % (20-44); Mean Corpuscular HGB Conc 33 gm/dL (32-36); Mean Corpuscular Hemoglobin 30 pg (26-34); Mean Corpuscular Volume 91 fL (80-100); Monocytes Percent Auto 8.5 % (0.0-11.0); Neutrophils Percent Auto 74.2 % (42.0-72.0); Platelet Count* 231 K/uL (140-440); RDW Coefficient of Variation % 14.6 % (11.5-15.5); Red Blood Count 3.91 m/uL (4.00-5.20); White Blood Count* 10.46 K/uL (4.50-11.00)
[2024-04-02] MEDS: ONDANSETRON 2 MG/ML inj 4 MG IV (22:17)
[2024-04-02] MEDS: LACTATED RINGERS 1000 ML 1,000 ML 1200 ML IV ×2 (22:32→23:32)
[2024-04-02 22:42] LABS: Slide Review Reflex No
--- NOTE | 2024-04-02 23:29 | P.LDBA_ITS ---
Subjective History of Present Illness Date Seen: 04/02/24 Narrative: Patient is being admitted to Labor and Delivery for labor. She is a 28 year old at 40.0 weeks gestation. Her full history and physical was dictated by Miquel Neri CNM on 03/13/24. Please see this for details. She reports regular contractions starting this evening around 1700, on admission she was 3/50/-3, with intact membranes. She has requested an epidural and anesthesia has been called to come place at this time. Specific Issues/Plans : Sonido H&P 03/13/24 by Miquel Neri CNM # Asymptomatic bacturia (E.Coli) at [facility], treated w/ Keflex 08/19 Retested at 12.2 weeks, symptomatic: E.Coli, treated with Macorbid. Negative at 16 weeks. #Hx of anxiety and depression -Stable at [facility] -Denies previous medication use, has done therapy previously #Hx of precipitous . Per her report, last labored for a long time at home before coming in. Takes a long time to dilate but when she does it goes quick. # Varicella non-immune #hgb 10.7 at 28w-enc iron supplement qod, RX sent, this is her norm Hgb 10.47 at 36 weeks, IV iron #No growth by measurements for 3 visits f/u US ordered for growth 03/25/24- EFW 87% Needs PP pap US 11/16/2023 anatomy US with normal findings, anterior placenta 03/25/24: Sonographic gestational age 39 weeks 0 days and a sonographic due date of 04/01/2024. Good correlation with dates. Normal interval growth. Estimated weight 87th percentile. Abdominal circumference greater than 97th percentile. TDAP:02/06/24 FLU: COVID: RSV: 03/04 OB - Problem Based A/P Additional Plan (1) Pain during labor: Status: Resolved (2) 40 weeks gestation of : Status: Acute Plan Assessment:?? at 40.0 weeks gestation?? GBS negative? Patient is coping well with challenges of labor.?? Labor type: Spontaneous, Early labor? Category 1 FHR pattern.? complicated by: Anemia, asymptomatic UTI at [facility], size to dates discrepancy, EFW by US of 87%, AC >97% Plan:?? * ?Admit to L & D? * IV access: SL * Monitoring per policy: continuous ? * Candidate for analgesia of choice.? Planning epidural for pain management, anesthesia is here to place per pt request * Expectant management at this time ? * Patient encouraged to reposition and ambulate to promote physiologic labor and . * Anticipate ? Delivery/Labor/Induction Plan Plan: expectant management OB Exam Physical Exam Vital signs: Pulse BP 97 120/70 04/02/24 21:09 04/02/24 21:09 Narrative: Vitals Reviewed Constitutional:? Alert and oriented x3 HEENT:? Normocephalic, atraumatic Neck:? Supple Lungs:? Clear to auscultation bilaterally Heart:? Regular rate and rhythm, no murmur, rub or gallop Abdomen:? Soft, nontender, and gravid. Vertex by Albin's, confirmed with cervical exam by RN. Extremities:? No edema or erythema Cervix: 3 cm/50%/-3 station/vertex per RN NST: 125 bpm/moderate variability/+accelerations/-decelerations/moderate contractions Detailed Labor and Delivery Exam Patient Gravid: Yes
[2024-04-02] MEDS: BUPIVACAINE 0.25% PF 10 ML 10 ML ML EPIDURAL (23:31)
[2024-04-02] MEDS: ROPIVACAINE 0.2% 100 ml 100 ML 12 MG EPIDURAL (23:31)
[2024-04-03] VITALS (46 sets, daily range): BP systolic 88–135; BP diastolic 47–73; PULSE 72–109; RESP 14–18; TEMP 36.5–37.2; O2SAT 95–100; BMI 30.9
--- NOTE | 2024-04-03 00:11 | PM.ANBPRC ---
[facility] Medical History Normal vaginal delivery ?O80 - Encounter for full-term uncomplicated delivery (ICD-10) Vaginal delivery ?O80 - Encounter for full-term uncomplicated delivery (ICD-10) Autonomic dysfunction ?G90.9 - Disorder of the autonomic nervous system, unspecified (ICD-10) Surgical History (Updated 03/13/24 @ 08:41 by Grisel Neri CNM) No pertinent past surgical history ?Z78.9 - Other specified health status (ICD-10) Family History Mother Heart disease Sister Leukemia Father Heart disease Social History Narrative: SOCIAL? ? Education: associates X 2? ? Work: stay at home mom? ? Partner: Sonido, , information systems project manager for construction? ? Lives with: Sonido, kids? ? Pets: dog, cat ? ? Abuse: Denies past Safe at home with current partner ? ? Special Diet: Denies? ? Ok with a blood transfusion: yes? ? Culture or pentecostalism beliefs: denies? RISK FACTORS? ? Exercise Times/wk: occasional walking ? Depression/Anxiety: both? ? Previous Treatments: Denies Therapy: previously JOE: 3 PHQ 9: 9? ? Seat Belt Use: Routinely ? Smoking: Denies present? ? Smoked socially during college for 2-3 years, Alcohol/day: Denies while ? ? Caffeine: denies? ? Drug Use: Denies past/present? ? What is your current living situation?: I presently have a place to live Problems where you live: no known problems In the past 12 months, utilities in danger of being shut off: no In the past 12 mos, have been you worried that your food would run out before you had money to buy more?: never true In the past 12 mos, the food you bought just didn't last and you didn't have money to buy more?: never true Smoking Status: Former smoker How often does anyone, including family, friends and others, physically hurt you: never How often does anyone, including family, friends and others, insult or talk down to you: never How often does anyone, including family, friends and others, threaten you with harm: never How often does anyone, including family, friends and others, scream or curse at you: never Meds Home Medications and Allergies Home Medications ?Medication ?Instructions ?Recorded ?Confirmed ?Type prenat.vits,selena,[id number] 1 tab PO QDAY 07/21/22 04/02/24 History Allergies Allergy/AdvReac Type Severity Reaction Status Date / Time No Known Drug Allergies Allergy Verified 04/01/24 08:49 Results Labs Labs: Laboratory Results - last 24 hr 04/02/24 21:40 WBC 10.46 RBC 3.91 L Hgb 11.8 L Hct 35.4 MCV 91 MCH 30 MCHC 33 RDW Coeff of Zachary 14.6 Plt Count 231 Neut % (Auto) 74.2 H Lymph % (Auto) 15.6 L [place] % (Auto) 8.5 Eos % (Auto) 0.7 Baso % (Auto) 0.2 Neut # (Auto) 7.80 H Lymph # (Auto) 1.60 [place] # (Auto) 0.90 Eos # (Auto) 0.07 Baso # (Auto) 0.02 Abs Immat Gran (auto) 0.08 Imm/Tot Granulo (auto) 0.8 Vital Signs Vital Signs: Last Vital Signs Pulse 85 04/03/24 00:10 BP 125/70 04/03/24 00:10 Pulse Ox 96 04/03/24 00:05 Anesthesia Procedures Epidural Insertion Patient Location: OB Start Time: 23:25 Stop Time: 00:05 Start Date: 04/02/24 Stop Date: 04/03/24 Reason for Block: procedure for pain Patient Position: sitting Performed By: Naga Pepe Preanesthetic Checklist: IV checked, risks and benefits discussed, monitors and equipment checked, pre-op evaluation, timeout performed and anesthesia consent Prep: chlorhexidine gluconate Monitoring: blood pressure monitoring, continuous pulse oximetry and heart rate Approach: midline Vertebral Space: lumbar (1-5) Epidural Technique: LORNE saline Needle Type: Tuohy needle Injection Technique: continuous catheter Needle gauge: 17 Needle Length (cm): 10 cm Needle Insertion Depth (cm): 6 Catheter Gauge: 19 Catheter Type: multi-orifice Catheter at skin depth (cm): 12 Test Dose Result: negative and lidocaine 1.5% with epinephrine 1 to 200,000
--- NOTE | 2024-04-03 00:25 | PM.OBPNL ---
Subjective Date Seen: 04/03/24 Narrative: ?Margaux is coping well with labor pain/contractions now with her epidural in place is more comfortable but able to feel contractions as pressure. ?Sonido is with her for support. ?She continues to contract regularly and desired a cervical exam after her epidural placement. Exam showed cervix 3.5/70/-3 intact membranes. Discussed AROM with patient and reviewed risks/benefits, she wanted AROM at this time. AROM done without difficulty with small amount of clear fluid. Objective Exam: VSS, afebrile General Appearance:? Calm, cooperative. ?No acute distress. ? Psychiatric Exam: Alert and oriented, appropriate affect Abdomen: Gravid Ctx: ?Q 2-3 min apart. ? ?Moderate ? FHTs: ?Baseline: 120. ? ? Variability: moderate. ?Accels: +. ? ?Decels: ?-. SVE: 3.5/70/-3 Membranes: ?AROM clear at 0019 Vital Signs: Last Vital Signs Pulse 83 04/03/24 00:21 BP 122/65 04/03/24 00:21 Pulse Ox 96 04/03/24 00:05 Assessment Amniotic Membrane Status: AROM Plan Plan: Assessment:?? at 40.1 weeks gestation?? GBS negative Patient is coping well with challenges of labor.?? Labor type: Spontaneous, Early labor? Category 1 FHR pattern.? complicated by: Anemia, asymptomatic UTI at [facility], size to dates discrepancy, EFW by US of 87%, AC >97% ? Plan:?? Continue with routine intrapartum cares as ordered.?? Patient encouraged to move and change positions to promote physiologic labor and .?? Epidural per anesthesia infusing, pt encouraged to rest at this time Anticipate progress to NVD. ?
[2024-04-03] MEDS: PHENYLEPHRINE 100 MCG/ML SYRINGE IVP ×3 (02:30→02:43)
[2024-04-03] MEDS: ePHEDrine sulfate 5 MG/ML inj 10 MG IVP (02:55)
[2024-04-03] MEDS: OXYTOCIN 30 unit/500 ML in NS 30 UNIT/500 ML BAG 300 UNIT IVPB (03:59)
--- NOTE | 2024-04-03 04:15 | W.PM.OBVAGDE ---
OB Procedure Vag Delivery Mother Details Mother Details: The patient is a 28 year-old, 6, Para 3, admitted on 04/02/24 at 40.0 weeks gestation. : 6 Para: 4 Weeks Gestation: 40.1 Admission Date: 04/02/24 Additional Details Amniotic Membrane Status: AROM Amniotic Membrane Rupture Date: 04/02/24 Amniotic Membrane Rupture Time: 00:19 Amniotic Membrane Fluid Description: Clear Analgesia/Anesthesia Type: Epidural Waterbirth: No Pitcoin: Yes (for AMTSL) Delivery augmentation: rupture of membranes Labor Onset: 21:30 Complete: 03:54 Pushin:55 Heart: heart tones during second stage were reassuring with moderate variability, with variable deceleration. Delivery Details Delivery Date: 04/03/24 Delivery Time: 03:57 Route of delivery: Infant Gender: Male Viability: Alive; Heart Rate Present Position at Delivery: OA Delivery Details: 28?y.o?at 40.1 weeks.? Margaux arrived to the birthing unit with complaints of regular contractions since 0. She had made cervical change since her last check in the clinic and was admitted for labor. She labored with nursing support in her room using water therapy for pain relief then requested an epidural for pain. Once epidural was placed she was checked and had made small change to 3.5cm/70/-3. She attempted to rest for a few hours and then heart rate began to show early recurrent variables. Exam at that time was anterior and right rim. She had a prominent anterior rim that would not reduce with contractions so side lying release was done on both sides then reexamined and anterior lip was able to be pushed back with next contraction and stayed. ? ? She became complete at 0354.??She pushed in low fowlers positions effectively.? Spontaneous vaginal delivery at 0357 of?a viable?male infant.??Delivered in vertex OA position.??The head delivered and a pause was taken for restitution. There was a hand by the face posteriorly, gentle traction of the head failed to deliver the shoulders. Donald was done and patient instructed to push resulting in delivery of shoulder and body.? Spontaneous cry noted.??Infant placed on maternal abdomen.??Cord?was clamped and cut after a 5+ minute delay.??Nose and mouth were bulb suctioned.??? Recorded time interval between delivery of the head and shoulder was 45 seconds. ? Infant could move both upper extremities after the delivery? The patient tolerated the procedure well. The management of shoulder dystocia was reviewed with the patient and partner. All their questions were answered. ? Shoulder dystocia: yes? Nuchal cord: no? Meconium stained?fluid: no? Water : no? ? ? 8 at 1 minute and 8 at 5 minutes.? Weight is pending. ? Placenta delivered spontaneously and?complete?at 0405 with a?3 vessel?cord.?? Bleeding controlled with fundal massage and?pitocin?for AMTSL.? ? Lacerations:? intact no repair needed ? Bleeding?post delivery?was: minimal. ?The fundus was firm to palpation.? Blood loss: 100?mL.? Blood loss measurement type: QBL? ? ? Sponge,?lap?and needles counts are correct.? Mother and were stable after delivery.? 1 Minute Interval Total Score: 8 5 Minute Interval Total Score: 8 Additional Details Shoulder Dystocia: Yes Placenta Delivery Time: 04:05 Placental Delivery Description: Spontaneous Procedure Done: Global Blood Loss: 100 Laceration: None Blood Loss Measurement Type: QBL Bakri Used: No Sponge/Need Count Correct: Yes Cord Vessel Description: 3 Vessels Event Summary Status: Mother and were stable after delivery. Disposition: floor
[2024-04-03] MEDS: ACETAMINOPHEN 500 MG TABLET 1000 MG PO ×3 (04:37→20:29)
[2024-04-03] MEDS: miSOPROStoL 800 MCG/4 TABLET SUBLINGUAL (07:20)
[2024-04-03] MEDS: IBUPROFEN 600 MG TABLET PO ×3 (09:03→22:29)
[2024-04-03] MEDS: DOCUSATE SODIUM 100 MG CAPSULE PO (09:03)
[2024-04-04] MEDS: ACETAMINOPHEN 500 MG TABLET 1000 MG PO (02:19)
[2024-04-04 02:20] VITALS: BP 119/71; PULSE 75; RESP 16; TEMP 36.6; O2SAT 95
[2024-04-04] MEDS: IBUPROFEN 600 MG TABLET PO (04:47)
--- NOTE | 2024-04-04 07:42 | P.DS_ITS ---
DS: Providers Provider Date Seen: 04/04/24 Date of admission: 04/02/24 21:31 Primary care physician: Suad Patten MD Admitting Clinician: Radha Dickey CNM Attending Physician on discharge: Diamond KHAN CURRICULUM FACILITATOR Date of Discharge: 04/04/24 DS: Diagnosis Discharge Diagnosis (1) care and examination: Status: Acute (2) Lactating mother: Status: Acute (3) Anemia affecting : Status: Acute (4) Anxiety and depression: Status: Acute Exam Narrative: Exam Narrative: GENERAL APPEARANCE:? normal affect, alert, no distress MOOD:? appropriate CHEST:? clear to auscultation HEART:? regular rate and rhythm ABDOMEN:? soft, non-tender the uterine fundus is At Umbilicus, slight right of Midline and pushed easily back to midline and is appropriate for the stage of recovery. EXTREMITIES:? normal and minimal edema Const: Vital Signs, click to edit/add: Vital Signs - 24 hr 04/03/24 08:04 04/03/24 12:15 04/03/24 20:22 Temperature 98.9 F 97.8 F Pulse Rate [Pulse Oximeter] 89 72 Respiratory Rate 18 16 16 Blood Pressure 128/73 Blood Pressure [Ri ght Arm] 116/69 114/69 Pulse Oximetry 100 95 95 Oxygen Delivery Me thod Room Air Room Air 04/04/24 02:20 Temperature 97.8 F Pulse Rate [Pulse Oximeter] 75 Respiratory Rate 16 Blood Pressure Blood Pressure [Ri ght Arm] 119/71 Pulse Oximetry 95 Oxygen Delivery Me thod Room Air OB - DS: Summary Hospital Course Hospital Course: Margaux is a 28 y.o. G 6 P 4024 who was admitted to L & D for active labor.? She had a NVD that was uncomplicated. The patient feels well.? The pain is well controlled with current medications.? She has no new complaints.? She is breast feeding and reports things are going well. the patient has done well.? Vitals have been stable.? She has remained afebrile.? Has a good appetite, is tolerating a general diet.? She is voiding without difficulty.? She is passing gas and has had a bowel movement.? She is ambulating and denies any dizziness.? Has small amount of rubra lochia. She is planning vas/condoms for prevention.? ?? Problems: none? Peripartum Data Infant delivery method: Vaginal Laceration description: None Episiotomy description: None complications: none Gender: Male Discharge Plan: Home Status at Discharge Overall status at discharge: patient is progressing back to baseline Time Spent with Patient Time attestation: Total time spent providing and/or coordinating discharge services: Time spent: Less than 30 minutes Discharge Plan Discharge Disposition: Home, Self-Care Date of Admission: 04/02/24 21:31 Attending Provider on Discharge: Summer Panchal Primary Care Provider: Suad Patten Condition: Stable Anticipated Discharge Date/Time: 04/04/24 10:00 Discharge Medications: New docusate sodium 100 mg Capsule 100 mg PO DAILY Qty: 60 0RF Continued prenat.vits,selena,[id number] Tablet 1 tab PO QDAY Discharge Orders: Discharge Order (Routine); Ordered 04/04/24 Ordered By: Summer Panchal Patient Education: OB [place] [facility], OB Vaginal/Breast Feeding Additional Instructions: Discharge instructions were reviewed with the patient including signs and symptoms of infection and home going medications Nothing vaginally for 6 weeks: no tampons or intercourse Do not drive while taking narcotic pain medication(s) Off Work or School for 6 weeks Symptoms to report to doctor: * Bleeding that saturates more than one pad per hour * Passing clots larger than the size of a golf ball * Pain not relieved by prescribed medication * Fever above 100.4 degrees Fahrenheit * A foul vaginal odor * Difficulty in emotions, mood, and functions * Thoughts of hurting yourself and/or * Painful, reddened area in your breast * Any drainage, redness, or tenderness in your IV/epidural site * Severe headache that doesn't improve after taking medications * Changes in vision, including temporary loss of vision, blurred vision, and/or light sensitivity * Upper abdominal pain (usually under ribs on the right side) * Decrease in urination or painful, frequent urinating * Chest pain * Shortness of breath * Tenderness or pain with redness and/swelling in the calf(s) of your leg 2-week visit: discuss infant feeding concerns, review control options and screen for anxiety/depression. 6-week visit for an annual exam. consultation services are available to all mothers and babies for the first year after delivery.? To make an appointment, please call [phone]. For pain control of perineum, breast and pelvic pain, take 600 mg Ibuprofen every 6 hours as needed by mouth or 1000 mg acetaminophen (Tylenol) every 6 hours by mouth as needed. You can alternate these so you are taking something every 3 hours as needed. A heating pad can also be used for your abdomen or b reasts. You may also take docusate sodium up to twice daily to soften your stools and help to prevent constipation. You may wean off of it when your stools return to normal.? Activity Level: Activity as Tolerated and No strenuous activity Discharge Diet: Regular Follow Up Appointments: [facility] [Provider Group] Forms: MyHealth Info Instructions
[2024-04-04 09:35] VITALS: BP 127/81; PULSE 78; RESP 16; TEMP 37.1; O2SAT 97
[2024-04-04] MEDS: DOCUSATE SODIUM 100 MG CAPSULE PO (09:42)
[2024-04-05 09:12] LABS: Rapid Plasma Reagin (RPR) Non Reactive (Non Reactive)
== END 2024-04-04 11:26 | disposition home or self-care (01) | DRG 807 ==
LOC: OB OUT 21:31 → OB 21:31
PROVIDERS: Admitting Provider Advanced Practice Midwife; PCP Physical Medicine & Rehabilitation Pain Medicine; Visit Provider Advanced Practice Midwife
DX: O99.02 Anemia complicating childbirth (principal); Z37.0 Single live birth; O99.344 Other mental disorders complicating childbirth; F41.9 Anxiety disorder, unspecified; F32.A Depression, unspecified; D64.9 Anemia, unspecified; Z3A.40 40 weeks gestation of pregnancy; O66.0 Obstructed labor due to shoulder dystocia; Z78.9 Other specified health status
CPT/HCPCS: 01967; 36415; 51798; 85025; 86592; 86850; 86900; 86901; G0463; A9270; J0665; J2371; J2405; J2795; J7120

== ENCOUNTER 2024-08-06 12:28 | Outpatient (CLI) | payer OTHER, SELFPAY ==
[2024-08-08 06:23] LABS: HPV Source Cervical; HPV, High Risk by TMA Not Detected
== END 2024-08-06 12:29 | disposition home or self-care (01) ==
PROVIDERS: PCP Physical Medicine & Rehabilitation Pain Medicine; Visit Provider Advanced Practice Midwife
DX: Z12.4 Encounter for screening for malignant neoplasm of cervix (principal); Z11.51 Encounter for screening for human papillomavirus (HPV)
CPT/HCPCS: 87624; 87625; 88141; 88142